=== PATIENT | female | born 1990 | race Caucasian/White ===

== ENCOUNTER 2022-08-17 19:33 | Emergency (ER) | payer OTHER, SELFPAY ==
--- OUTSIDE RECORDS SUMMARY | 2022-08-17 19:39 | XMS REPORT | Continuity of Care Document ---
:1990 Author Organization [facility] t Address [address] [place] [address] [address] [place] [address] Care Team Providers Name Role Phone Asked, No Pcp Primary Care Physician Unavailable EDGARDO MADRIGAL Attending Clinician Unavailable [email or web address] Attending Clinician Unavailable NOÉ DELGADO Attending Clinician Unavailable RYLIE NOVOA Attending Clinician Unavailable CASTRO DELONG Attending Clinician Unavailable MADHU COONEY Attending Clinician Unavailable Jesus Alberto Fajardo Attending Clinician Carlos Bolton Attending Clinician Dimitris Hurd Attending Clinician EDGARDO MADRIGAL Admitting Clinician Unavailable [facility]Charissa Admitting Clinician Unavailable Jesus Alberto Fajardo Admitting Clinician Dimitris Hurd Admitting Clinician Payers Payer Name Policy Type Policy Number Effective Date Expiration Date Art joseph [facility] [id number] 2019 00:00:00 [facility] [id number] Problems Condition Condition Condition Status Onset Resolution Last Treating Co mments Source Name Details Category Date Date Treatment Clinician Date Ectopic Ectopic Disease Active Methodi 5-[facility] without without 00:00: Hospita intrauteri intrauteri 00 l ne ne VAG PAIN VAG PAIN Diagnosis Active 2015-07-27 Memoria Active - 12:56:00 l 03/21/2015 13:30: Bright R[place] 00 [place] 574.00 / 574.00 / Diagnosis Active 2014-09-09 Memoria 574.20 574.20 08-24 09:10:00 l Active 00:00: Keenan 08/24/2014 00 [facility] ABD PAIN ABD PAIN Diagnosis Active 2014-09-07 Memoria Active 07-25 13:45:00 l 07/25/2014 00:00: Bright n [address] CHOLECYSTI CHOLECYST Diagnosis Active 2014-09-07 Memoria TIS NOS ITIS NOS 13:45:00 l Active Bright n [facility] CHOLELITH CHOLELITH Diagnosis Active 2014-09-09 Memoria W AC W AC 09:10:00 l CHOLECYST CHOLECYST Herm mary Active [facility] CHOLELITHI CHOLELITH Diagnosis Active 2014-09-09 Memoria ASIS NOS IASIS NOS 09:10:00 l Active Bright n [facility] ACUTE ACUTE Diagnosis Active 2015-07-27 Mem oria APPENDICIT APPENDICIT 12:56:00 l IS WITH IS WITH Keenan GENERALIZE GENERALIZE D LETAHA D LEATHA Active [facility] Allergies, Adverse Reactions, Alerts Allergy Allergy Status Severity Reaction(s) Onset Inactive Treating Comm ents Source Name Type Date Date Clinician NO KNOWN Drug Active Univers ALLERGIE Class ity of [facility] propofol propofol Active Luzmaria Hussein Social History Social Habit Start Date Stop Date Quantity Comments Source [facility] History of tobacco Smokes tobacco [facility] use daily Hospital History of Social [address] function 00:00:00 00:00:00 Hospital Alcohol intake 2020-12-17 2020-12-17 Current [facility] 00:00:00 00:00:00 non-drinker of Hospital alcohol (finding) Cigarettes smoked 2017-06-18 2017-06-[address] current (pack per 00:00:00 00:00:00 Hospita l day) - Reported Cigarette 2017-06-18 2017-06-18 [facility] pack-years 00:00:00 00:00:00 Hospital Tobacco use and 2017-06-18 2017-06-18 Smokeless [facility] exposure 00:00:00 00:00:00 tobacco non-user Hospital Social History 2014-07-29 2014-07-29 [facility] Adryan walton 20:11:23 20:11:23 Sex Ass[birth year] At [birth year] [facility] 00:00:00 00:00:00 Hospital Smoking Status Start Date Stop Date Source Smokes tobacco daily 2017-06-18 00:00:[address] [facility] Medications Ordered Filled Start Stop Current Ordering Indication Dosage Frequency Signature Comments Components Source Medication Medication Date Date Medication? Clinician (SIG) Name Name piero 2020-02 Yes 500mg QD Take 2 [facility] n 1-[address] (Zithromax 00:00: (500 mg [facility]) 250 00 total) by l MG tablet mouth daily. Take 2 tablets the first day, then 1 tablet daily for 4 days. Simethicone No Notes: Fidel octaviano 2-16 (Same as: l 04:20: Mylicon) [place] 00 Acetaminoph Yes 1 tab, PO, Memoria en 325 MG / 2-15 Q4H, PRN l Hydrocodone 20:38: for pain, H ermann Bitartrate 00 X 7 day, # 5 MG Oral 30 tab, 0 Tablet Refill(s) [Bethesda 5/325] Metronidazo Yes 500 mg = 1 Memoria le 500 MG 2-15 tab, PO, l Oral Tablet 20:38: Q8H, X 7 He rmann [Flagyl] 00 day, # 21 tab, 0 Refill(s) Ciprofloxac Yes 500 mg = 1 Memoria in 500 MG 2-15 tab, PO, l Oral Tablet 20:38: Q12H, X 7 H ermann [Cipro] 00 day, # 14 tab, 0 Refill(s) Ondansetron Yes 4 mg = 1 Me moria 4 MG Oral 2-15 tab, PO, l Tablet 20:38: Q6H, PRN [place] [Zofran] 00 Nausea/Vom iting, X 8 day, # 30 tab, 0 Refill(s) Metronidazo No 500 mg = 1 Memoria le 500 MG 2-15 tab, PO, l Oral Tablet 18:54: Q8H, X 7 He rmann [Flagyl] 00 day, # 21 tab, 0 Refill(s) Ciprofloxac No 500 mg = 1 Memoria in 500 MG 2-15 tab, PO, l Oral Tablet 18:54: Q12H, X 7 H ermann [Cipro] 00 day, # 14 tab, 0 Refill(s) Ondansetron No 4 mg = 1 Me moria 4 MG Oral 2-15 tab, PO, l Tablet 18:54: Q6H, PRN [place] [Zofran] 00 Nausea/Vom iting, X 8 day, # 30 tab, 0 Refill(s) Acetaminoph No 1 tab, PO, Memoria en 325 MG / 2-15 Q4H, PRN l Hydrocodone 18:54: Pain Score Keenan Bitartrate 00 4-6, 0 7.5 MG Oral Refill(s) Tablet [Bethesda 7.5/325] Docusate No Notes: Memoria Sodium 100 2-15 (Same as: l MG Oral 15:00: Colace) [place] Capsule 00 (Do Not [Colace] Crush) Zosyn No Notes: Memoria 2-15 (Same as: l 09:00: Zosyn) Keenan Dosing based on Piperacill in component MEDICATION WASTE Product Size: 3375 mg Product Wasted: ___ mg Saline No Notes: Memoria Flush 0.9% 2-15 (Same as: l 06:35: BD [place] 00 Posiflush) Sodium No 1,000 mL, Memori a Chloride 2-15 Rate: 125 l 0.154 06:35: ml/hr, [place] MEQ/ML 00 Infuse Injectable over: 8 Solution hr, Route: IV, Dosing Weight 87.784 kg, Total Volume: 1,000, Start date: 03/22/15 0:35:00, Duration: 30 day, Stop date: 04/21/15 0:34:00 Ondansetron No Notes: Fidel octaviano 2-15 (Same as: l 06:35: Zofran) [place] 00 MEDICATION WASTE Product Size: 4 mg Product Wasted: ___ mg Morphine No Notes: Memoria 2-15 (Same l 05:22: as:MORPhin Keenan 00 e Sulfate) Acetaminoph No Notes: Fidel octaviano en 325 MG / 2-15 Same as l Hydrocodone 05:22: Bethesda Chen nn Bitartrate 00 325-7.5mg 7.5 MG Oral Do not Tablet exceed [Bethesda 4gm/day of 7.5/325] acetaminop hen. Midazolam No Notes: Memori a 2-15 (Same as: l 04:48: Versed) MEDICATION WASTE Product Size: 2 mg Product Wasted: ___ mg Racepinephr No Notes: Fidel octaviano ine 2-15 (racepinep l 04:48: hrine *2.25% inh 0.5ml SOLN) (Same as:S2) Glycopyrrol No Notes: Fidel octaviano ate 2-15 (Same as: l 04:48: Robinul) Naloxone No Notes: Memoria 2-15 Same as l 04:48: Narcan Ondansetron No Notes: Fidel octaviano 2-15 (Same as: l 04:48: Zofran) MEDICATION WASTE Product Size: 4 mg Product Wasted: ___ mg Morphine No Notes: Memoria 2-15 (Same l 04:48: as:MORPhin e Sulfate) Meperidine No Notes: Memor ia 2-15 (Same as: l 04:48: Demerol) "Use Precaution in Elderly, Seizure disorders, and Renal impairment " Flumazenil No Notes: Memor ia 2-15 (Same as: l 04:48: Romazicon) Atropine No 0.2 mg, 2 Fidel octaviano 2-15 mL, Route: l 04:48: IVP, Drug form: INJ, Q5Min, Dosing Weight 87.784, kg, PRN Other -See Comment, as needed; for symptomati c pulse rate < 80% of mean 50 BPM, Start date: 03/21/15 22:48:00, Duration: 12 hr, Stop date: 03/22/15 10:47:00 Ephedrine No Notes: Memori a 2-15 (Same as: l 04:48: ePHEDrine Sulfate) Albuterol No Notes: SEE Me moria 0.83 MG/ML 2-15 RT l Inhalant 04:48: DOCUMENTAT Her lee Solution 00 ION MEDICATION WASTE Product Size: 2.5 mg Product Wasted: ___ mg Ketorolac No 4 days Memor ia 2-15 l 04:48: MEDICATION Keenan 00 WASTE Product Size: 30 mg Product Wasted: ___ mg Hydromorpho No Notes: Fidel octaviano ne 2-15 Same as: l 04:48: Dilaudid [place] 00 Oxycodone No Notes: Memori a 2-15 (Same as: l 04:48: Roxicodone [place] 00 ) Labetalol No Notes: Memori a 2-15 (Same as: l 04:48: Normodyne, [place] 00 Trandate) Push over 2 minutes Give bolus over 2-3 minutes. Hydralazine No Notes: Fidel octaviano 2-15 (Same as: l 04:48: Apresoline [place] 00 ) Push over 5 minutes Oxycodone No Notes: Memori a Hydrochlori 2-15 (Same as: l de 1 MG/ML 04:48: Roxicodone H ermann Oral 00 ) Solution Zosyn No Notes: Memoria 2-15 (Same as: l 01:12: Zosyn) Keenan 00 Dosing based on Piperacill in component MEDICATION WASTE Product Size: 3375 mg Product Wasted: 0 mg Saline No Notes: Memoria Flush 0.9% 2-14 (Same as: l 23:10: BD Keenan Posiflush) Ondansetron No Notes: Fidel octaviano 2-14 (Same as: l 23:10: Zofran) [place] 00 MEDICATION WASTE Product Size: 4 mg Product Wasted: 0 mg Morphine No Notes: Memoria 2-14 (Same l 23:10: as:MORPhin [place] 00 e Sulfate) Ketorolac No 4 days Memor ia 8-05 l 15:35: MEDICATION [place] WASTE Product Size: 30 mg Product Wasted: ___ mg Oxycodone No Notes: Memori a 8-05 (Same as: l 15:35: Roxicodone ) Hydralazine No Notes: Fidel octaviano 8-05 (Same as: l 15:35: Apresoline ) Push over 5 minutes Labetalol No Notes: Memori a 8-05 (Same as: l 15:35: Normodyne, Trandate) Push over 2 minutes Give bolus over 2-3 minutes. Ondansetron No Notes: Fidel octaviano 8-05 (Same as: l 15:35: Zofran) MEDICATION WASTE Product Size: 4 mg Product Wasted: ___ mg Promethazin No Notes: Do M emoria e 09-09 not give l 15:35: IV push. [place] 00 (Same as: Phenergan) Diphenhydra No Notes: Fidel octaviano mine 09-09 (Same as: l 15:35: Benadryl) Glycopyrrol No Notes: Fidel octaviano ate 05 (Same as: l 15:35: Robinul) Atropine No 0.2 mg, 2 Fidel octaviano 8-05 mL, Route: l 15:35: IVP, Drug form: INJ, Q5Min, Dosing Weight 59.091, kg, PRN Other -See Comment, as needed; for symptomati c pulse rate < 80% of mean 50 BPM, Start date: 09/09/14 10:35:00, Stop date: 09/09/14 20:00:00 Naloxone No Notes: Memoria 8-05 Same as l 15:35: Narcan Ephedrine No Notes: Memori a 805 (Same as: l 15:35: ePHEDrine Sulfate) Flumazenil No Notes: Memor ia 805 (Same as: l 15:35: Romazicon) Morphine No Notes: Memoria 805 (Same l 15:35: as:MORPhin e Sulfate) Meperidine No Notes: Memor ia 09-09 (Same as: l 15:35: Demerol) "Use Precaution in Elderly, Seizure disorders, and Renal impairment " Calcium No 1,000 mL, Memor ia Chloride 09-09 Rate: 125 l 0.0014 15:35: ml/hr, [place] MEQ/ML / 00 Infuse Potassium over: 8 Chloride hr, Route: 0.004 IV, Dosing MEQ/ML / Weight Sodium 59.091 kg, Chloride Total 0.103 Volume: MEQ/ML / 1,000, Sodium Start Lactate date: 0.028 09/09/14 MEQ/ML 10:35:00, Injectable Duration: Solution 30 day, Stop date: 10/09/14 10:34:00 Flumazenil No Notes: Memor ia 09-09 (Same as: l 15:13: Romazicon) Naloxone No Notes: Memoria 09-09 Same as l 15:13: Narcan LR IV 1,000 No 1,000 mL, M emoria mL 09-09 Rate: 40 l 14:35: ml/hr, [place] Infuse over: 25 hr, Route: IV, Dosing Weight 59.091 kg, Total Volume: 1,000, Start date: 09/09/14 9:35:00, Duration: 30 day, Stop date: 10/09/14 9:34:00 Simethicone Yes 125 mg = 1 Memoria 125 MG 6-27 tab, CHEW, l Chewable 21:01: QID, X 7 Chen nn Tablet day, # 28 [Gas-X tab, 0 Extra Refill(s) Strength] tramadol Yes 50 mg, PO, Mem oria hydrochlori 6-27 Q6H, PRN l de 50 MG 21:01: Pain, X 5 Herm mary Oral Tablet 00 day, # 24 tab, 0 Refill(s) Docusate Yes 100 mg = 1 Mem oria Sodium 100 6-27 cap, PO, l MG Oral 21:01: BID, PRN Bright n Capsule 00 Constipati [Colace] on, # 20 cap, 0 Refill(s) Promethazin Yes 25 mg = 1 M emoria e 6-27 tab, PO, l Hydrochlori 20:36: Q6H, PRN He rmann de 25 MG 00 Nausea, X Oral Tablet 5 day, # [Phenergan] 20 tab, 0 Refill(s) Famotidine Yes 20 mg = 1 Me moria 20 MG Oral 6-27 tab, PO, l Tablet 20:36: BID, # 14 Bright n [Pepcid] 00 tab, 0 Refill(s) Acetaminoph Yes 1 - 2 tab, Memoria en 300 MG / 6-27 PO, Q4H, l Codeine 16:56: PRN Pain, Chen nn Phosphate 00 X 4 day, # 30 MG Oral 36 tab, 0 Tablet Refill(s) [Tylenol with Codeine #3] Ciprofloxac Yes 500 mg = 1 Memoria in 500 MG 6-27 tab, PO, l Oral Tablet 16:56: Q12H, X 10 Keenan [Cipro] 00 day, # 20 tab, 0 Refill(s) Enoxaparin No Notes: Memor ia 08-01 (Same as: l 11:00: Lovenox) Ondansetron No Notes: Fidel octaviano 07-31 (Same as: l 18:35: Zofran) MEDICATION WASTE Product Size: 4 mg Product Wasted: 0 mg Acetaminoph No Notes: Do M emoria en 325 MG / 07-31 not exceed l Hydrocodone 18:35: 4gm/day of [place] Bitartrate 00 acetaminop 10 MG Oral hen. (Same Tablet as: Bethesda 325/10) Ondansetron No Notes: Fidel octaviano - (Same as: l 16:53: Zofran) MEDICATION WASTE Product Size: 4 mg Product Wasted: 0 mg Dilaudid No Notes: Memoria 6- Same as: l 16:53: Dilaudid Meperidine No Notes: Memor ia - (Same as: l 16:53: Demerol) "Use Precaution in Elderly, Seizure disorders, and Renal impairment " tramadol No Notes: Not Mem oria hydrochlori - to exceed l de 50 MG 16:53: 400mg/day. Her lee Oral Tablet 00 (Same As: Ultram) Phenergan No Notes: Do Mem oria 07-31 not give l 16:53: IV push. Keenan 00 (Same as: Phenergan) Acetaminoph No Notes: Fidel octaviano en 325 MG / 07-31 (Same as: l Hydrocodone 16:53: Bethesda Chen nn Bitartrate 00 325/5) Do 5 MG Oral not exceed Tablet 4gm/day of [Bethesda acetaminop 5/325] hen. Zofran ODT No Notes: Memor ia 07-31 (Same as: l 16:53: Zofran Keenan 00 ODT) Hydralazine No Notes: Fidel octaviano 07-31 (Same as: l 16:53: Apresoline [place] 00 ) Push over 5 minutes Labetalol No Notes: Memori a - (Same as: l 16:53: Normodyne, [place] 00 Trandate) Push over 2 minutes Give bolus over 2-3 minutes. Ketorolac No 4 days Memor ia 07-31 l 16:53: MEDICATION [place] 00 WASTE Product Size: 30 mg Product Wasted: 0 mg Flumazenil No Notes: Memor ia 07-31 (Same as: l 16:53: Romazicon) Keenan Morphine No Notes: Memoria - (Same l 16:53: as:MORPhin [place] 00 e Sulfate) Naloxone No Notes: Memoria - Same as l 16:53: Narcan Keenan 00 LR IV 1,000 No 1,000 mL, M emoria mL 07-31 Rate: 40 l 15:58: ml/hr, [place] 00 Infuse over: 25 hr, Route: IV, Dosing Weight 87.273 kg, Total Volume: 1,000, Start date: 07/31/14 10:58:00, Duration: 30 day, Stop date: 08/30/14 10:57:00 Ondansetron No Notes: Fidel octaviano 07-31 (Same as: l 13:44: Zofran) [place] 00 MEDICATION WASTE Product Size: 4 mg Product Wasted: 0 mg Morphine No Notes: Memoria 07-31 (Same l 13:44: as:MORPhin [place] 00 e Sulfate) Fentanyl No Notes: Memoria 07-31 (Same as: l 13:44: Sublimaze) [place] 00 Preservati ve free. 72 HR No Notes: Memoria Scopolamine 07-31 Change l 0.0139 13:44: patch [place] MG/HR 00 every 72 Transdermal hours Patch (Same as: Transderm- Scop) Hydrocodone No Notes: Fidel octaviano Bitartrate 07-31 (Same as: l 2.5 MG / 13:44: Vicoprofen Her lee Ibuprofen 00 ) 200 MG Oral Tablet Acetaminoph No Notes: Fidel octaviano en 325 MG / 07-31 Same as l Hydrocodone 13:44: Bethesda Chen nn Bitartrate 00 325-7.5mg 7.5 MG Oral Do not Tablet exceed [Bethesda 4gm/day of 7.5/325] acetaminop hen. Meperidine No Notes: Memor ia 07-31 (Same as: l 13:44: Demerol) "Use Precaution in Elderly, Seizure disorders, and Renal impairment " Promethazin No Notes: Do M emoria e 07-31 not give l 13:44: IV push. Keenan 00 (Same as: Phenergan) Flumazenil No Notes: Memor ia 07-31 (Same as: l 13:44: Romazicon) [place] 00 Naloxone No Notes: Memoria 07-31 Same as l 13:44: Narcan Ke[place]an 00 Flumazenil No Notes: Memor ia 07-31 (Same as: l 13:18: Romazicon) Keenan 00 Naloxone No Notes: Memoria 07-31 Same as l 13:18: Narcan LR IV 1,000 No 1,000 mL, M emoria mL 07-31 Rate: 40 l 11:33: ml/hr, [place] 00 Infuse over: 25 hr, Route: IV, Dosing Weight 87.273 kg, Total Volume: 1,000, Start date: 07/31/14 6:33:00, Duration: 30 day, Stop date: 08/30/14 6:32:00 Pepcid Yes Notes: Memoria 6-25 (Same as: l 20:48: Pepcid) Keenan 00 Can be dilute in 5-10cc NS IVP: Slow IV push over at least 2 minutes. Citric Acid Yes Notes: Fidel octaviano 66.8 MG/ML 07-30 (Same As: l / sodium 20:48: Bicitra) Chen nn citrate 100 00 MG/ML Oral Solution Reglan Yes Notes: Memoria 6-25 (Same as: l 20:48: Reglan) Keenan 00 Midazolam No 1 mg, Memoria 07-30 Route: l 20:45: IVP, Keenan 00 Q5Min, Dosing Weight 87.273, kg, PRN Anxiety, Start date: 07/30/14 15:45:00, Duration: 2 doses or times, Stop date: Limited # of times Ondansetron No 4 mg, Memor ia 07-30 Route: l 20:45: IVP, ONCE, Dosing Weight 87.273, kg, PRN Nausea & Vomiting, Start date: 07/30/14 15:45:00 72 HR No 1 patch, Memoria Scopolamine 07-30 Route: l 0.0139 20:45: TOP, Drug Bright n MG/HR 00 Form: Transdermal ERFILM, Patch Dosing Weight 87.273, kg, ONCE, Apply behind ear. Avoid use in elderly., Start date: 07/30/14 15:45:00, Stop date: 07/30/14 15:45:00 Dexamethaso No 4 mg, Memor ia ne 07-30 Route: l 20:45: IVP, ONCE, Dosing Weight 87.273, kg, PRN Nausea & Vomiting, Start date: 07/30/14 15:45:00 Phenergan No 25 mg, Memori a 07-30 Route: IM, l 20:45: ONCE, Dosing Weight 87.273, kg, PRN Allergic reaction, Start date: 07/30/14 15:45:00 Meperidine 2014-0 No 50 mg, Memor ia 07-30 Route: IM, l 20:45: ONCE, [place] Dosing Weight 87.273, kg, PRN Pain Score 7-10, Start date: 07/30/14 15:45:00 Reglan 2015-0 No 10 mg, Memoria 07-30 Route: l 20:45: IVP, ONCE, Keenan Dosing Weight 87.273, kg, PRN Nausea & Vomiting, Start date: 07/30/14 15:45:00 Glycopyrrol 2014-0 No 0.2 mg, Mem oria ate 07-30 Route: l 20:45: IVP, Keenan 00 Q5Min, Dosing Weight 87.273, kg, PRN Bradycardi a, Start date: 07/30/14 15:45:00, Duration: 3 doses or times, Stop date: Limited # of times Diphenhydra 2014-0 No 12.5 mg, Me moria mine 07-30 Route: l 20:45: IVP, Drug Keenan 00 form: INJ, Q6H, Dosing Weight 87.273, kg, PRN Itching, Start date: 07/30/14 15:45:00, Duration: 30 day, Stop date: 08/29/14 15:44:00 Albuterol 2014-0 No 2.49 mg, Fidel octaviano 0.83 MG/ML 07-30 Route: l Inhalant 20:45: NEB, Keenan Solution 00 Q20Min, Dosing Weight 87.273, kg, PRN Wheezing, Priority: STAT, Start date: 07/30/14 15:45:00, Duration: 30 day, Stop date: 08/29/14 15:44:00 Naloxone 2014-0 No 0.04 mg, Memor ia 07-30 Route: l 20:45: IVP, [place] 00 Q2MIN, Dosing Weight 87.273, kg, PRN Narcotic Reversal, Start date: 07/30/14 15:45:00, Duration: 8 doses or times, Stop date: Limited # of times Ephedrine 2014-0 No 5 mg, Memoria 07-30 Route: l 20:45: IVP, [place] 00 Q5Min, Dosing Weight 87.273, kg, PRN Low Blood Pressure, Start date: 07/30/14 15:45:00, Duration: 30 day, Stop date: 08/29/14 15:44:00 Labetalol 2014-0 No 10 mg, Memori a 07-30 Route: l 20:45: IVP, Keenan 00 Q5Min, Dosing Weight 87.273, kg, PRN Elevated BP, Start date: 07/30/14 15:45:00, Duration: 5 doses or times, Stop date: Limited # of times Hydralazine 2014-0 No 10 mg, Fidel octaviano 07-30 Route: l 20:45: IVP, [place] 00 Q20Min, Dosing Weight 87.273, kg, PRN Elevated BP, Start date: 07/30/14 15:45:00, Duration: 2 doses or times, Stop date: Limited # of times Acetaminoph 2014-0 No 1,000 mg, M emoria en 07-30 Route: l 20:45: IVPB, Drug [place] 00 form: INJ, ONCE, Dosing Weight 87.273, kg, PRN Pain Score 1-3, Start date: 07/30/14 15:45:00, Duration: 1 doses or times, Stop date: Limited # of times Oxycodone 2014-0 No 5 mg, Memoria 07-30 Route: PO, l 20:45: Drug form: [place] 00 TAB, Q4H, Dosing Weight 87.273, kg, PRN Pain Score 4-6, Start date: 07/30/14 15:45:00, Duration: 30 day, Stop date: 08/29/14 15:44:00 Ketorolac 2015-0 No 30 mg, Memori a 07-30 Route: l 20:45: IVP, ONCE, [place] 00 Dosing Weight 87.273, kg, Start date: 07/30/14 15:45:00, Duration: 1 doses or times, Stop date: 07/30/14 15:45:00 Ibuprofen 2014-0 No 600 mg, Memor ia 07-30 Route: PO, l 20:45: Drug form: Ke[place]an 00 TAB, Q6H, Dosing Weight 87.273, kg, PRN Pain Score 1-3, Start date: 07/30/14 15:45:00, Duration: 30 day, Stop date: 08/29/14 15:44:00 Morphine No 4 mg, Memoria 6-25 Route: l 20:45: IVP, [place] 00 Q5Min, Dosing Weight 87.273, kg, PRN Pain Score 7-10, Start date: 07/30/14 15:45:00, Duration: 3 doses or times, Stop date: Limited # of times Flumazenil No 0.2 mg, Fidel octaviano 6-25 Route: l 20:45: IVP, PRN, Dosing Weight 87.273, kg, PRN Benzodiaze pine Reversal, Initial dose, Start date: 07/30/14 15:45:00, Duration: 30 day, Stop date: 08/29/14 15:44:00 Normodyne No Notes: Memori a 6-25 (Same as: l 20:39: Normodyne, [place] 00 Trandate) Push over 2 minutes Give bolus over 2-3 minutes. Meperidine No Notes: Memor ia -25 (Same as: l 20:24: Demerol) "Use Precaution in Elderly, Seizure disorders, and Renal impairment " Reglan No Notes: Memoria 6-25 (Same as: l 20:24: Reglan) Phenergan No Notes: Do Mem oria 6-25 not give l 20:24: IV push. (Same as: Phenergan) Albuterol No Notes: SEE Me moria 0.83 MG/ML 25 RT l Inhalant 20:24: DOCUMENTAT Her lee Solution 00 ION MEDICATION WASTE Product Size: 2.5 mg Product Wasted: ___ mg Naloxone No Notes: Memoria 6-25 Same as l 20:24: Narcan Ephedrine No 5 mg, 1 Memor ia 6-25 mL, Route: l 20:24: IVP, Drug form: INJ, Q5Min, Dosing Weight 87.273, kg, PRN Low Blood Pressure, Start date: 07/30/14 15:24:00, Duration: 8 hr, Stop date: 07/30/14 23:23:00 Ibuprofen No Notes: Memori a 6-25 (Same as: l 20:24: Motrin) "Do Not Crush" Take with food. Hydralazine No Notes: Fidel octaviano 6-25 (Same as: l 20:24: Apresoline ) Push over 5 minutes Labetalol No Notes: Memori a 6-25 (Same as: l 20:24: Normodyne, Trandate) Push over 2 minutes Give bolus over 2-3 minutes. Oxycodone No Notes: Memori a 6-25 (Same as: l 20:24: Roxicodone ) Acetaminoph No Notes: Fidel octaviano en 6-25 Infuse l 20:24: over 15 minutes Do not exceed 4gm/day of acetaminop hen MEDICATION WASTE Product Size: 1000 mg Product Wasted: ___ mg Flumazenil No Notes: Memor ia 6-25 (Same as: l 20:24: Romazicon) Morphine No Notes: Memoria 6-25 (Same l 20:24: as:MORPhin e Sulfate) Ketorolac No 4 days Memor ia 6-25 l 20:24: MEDICATION WASTE Product Size: 30 mg Product Wasted: ___ mg Ondansetron No Notes: Fidel octaviano 6-25 (Same as: l 20:24: Zofran) MEDICATION WASTE Product Size: 4 mg Product Wasted: ___ mg Dexamethaso No Notes: Fidel octaviano ne 6-25 Concentrat l 20:24: ion: [place] 00 4mg/ml Diphenhydra No Notes: Fidel octaviano mine 6-25 (Same as: l 20:24: Benadryl) Glycopyrrol No Notes: Fidel octaviano ate 6-25 (Same as: l 20:24: Robinul) 72 HR No Notes: Memoria Scopolamine 6-25 Change l 0.0139 20:24: patch [place] MG/HR 00 every 72 Transdermal hours Patch (Same as: Transderm- Scop) Midazolam No Notes: Memori a 07-30 (Same as: l 20:24: Versed) [place] MEDICATION WASTE Product Size: 2 mg Product Wasted: ___ mg LR IV 1,000 No 1,000 mL, M emoria mL 07-30 Rate: 40 l 20:23: ml/hr, [place]an 00 Infuse over: 25 hr, Route: IV, Dosing Weight 87.273 kg, Total Volume: 1,000, Start date: 07/30/14 15:23:00, Duration: 6 hr, Stop date: 07/30/14 21:22:00 remove No Notes: Memoria patch 07-30 Remove old l 20:00: patch [place] 00 before applicatio n of new patch. Nicotine No Notes: Memoria - (Same as: l 20:01: Habitrol) Keenan 00 "Remove old patch before applicatio n of new patch" Flagyl No Notes: Memoria 6-24 (Same as: l 18:00: Flagyl) [place] 00 Avoid alcohol. Levaquin No Notes: Memoria 6-24 (Same l 18:00: as:Levaqui [place] 00 n) Clonazepam Yes Notes: Memor ia 07-29 (Same As: l 17:20: KlonoPIN) [place] 00 Saline No Notes: Memoria Flush 0.9% 07-29 (Same as: l 17:02: BD [place] 00 Posiflush) Sodium No 1,000 mL, Memori a Chloride 07-29 Rate: 125 l 0.154 17:02: ml/hr, [place] MEQ/ML 00 Infuse Injectable over: 8 Solution hr, Route: IV, Dosing Weight 87.273 kg, Total Volume: 1,000, Start date: 07/29/14 12:02:00, Duration: 30 day, Stop date: 08/28/14 12:01:00 Ondansetron No Notes: Fidel octaviano 07-29 (Same as: l 17:02: Zofran) [place] 00 MEDICATION WASTE Product Size: 4 mg Product Wasted: ___ mg Morphine No Notes: Memoria 24 (Same l 17:02: as:MORPhin [place] 00 e Sulfate) Acetaminoph No Notes: Max Memoria en 24 acetaminop l 17:02: hen = [place] 00 4000mg/day (4 gm/day). (Same as: Tylenol) Acetaminoph No Notes: Fidel octaviano en 325 MG / 24 (Same as: l Hydrocodone 15:12: Bethesda Chen nn Bitartrate 00 325/5) Do 5 MG Oral not exceed Tablet 4gm/day of acetaminop hen. Ondansetron No Notes: Fidel octaviano 07-29 (Same as: l 15:12: Zofran) [place] 00 MEDICATION WASTE Product Size: 4 mg Product Wasted: ___ mg Ketorolac No 4 days Memor ia 07-29 l 15:12: MEDICATION [place] 00 WASTE Product Size: 30 mg Product Wasted: ___ mg Saline No Notes: Memoria Flush 0.9% 07-29 (Same as: l 15:12: BD [place] 00 Posiflush) Sodium No 1,000 mL, Memori a Chloride 07-29 1000 l 0.154 15:12: ml/hr, [place] MEQ/ML 00 Infuse Injectable Over: 1 Solution hr, Route: IV, 1,000, Drug form: INJ, ONCE, Priority: STAT, kg, Start date: 07/29/14 10:12:00, Duration: 1 doses or times, Stop date: 07/29/14 10:12:00 Balziva Yes 1 tab, PO, Fidel octaviano 07-29 Bedtime, 0 l 02:00: Refill(s) [place] 00 Immunizations Ordered Immunization Filled Immunization Date Status Commen ts Source Name Name PFIZER COVID-19 MRNA 2020-09-30 Completed Meth odist VACCINATION 00:00:00 Hospital Vital Signs Vital Name Observation Time Observation Value Comments Source Heart Rate 2015-03-23 16:04:00 [place] [facility] Systolic (mm Hg) 2015-03-23 16:04:00 Fidel rial [place] Diastolic (mm Hg) 2015-03-23 16:04:00 [facility] [place] Respitory Rate 2015-03-23 12:18:00 [facility] [place] Heart Rate 2015-03-23 12:18:00 [facility] [place] Systolic (mm Hg) 2015-03-23 12:18:00 Fidel [facility] [place] Diastolic (mm Hg) 2015-03-23 12:18:00 [facility] [place] Temperature Oral (F) 2015-03-23 12:18:00 97.8 F [facility] [place] Respitory Rate 2015-03-23 11:12:00 [facility] [place] Heart Rate 2015-03-23 11:12:00 [facility] [place] Systolic (mm Hg) 2015-03-23 11:12:00 Fidel rial [place] Diastolic (mm Hg) 2015-03-23 11:12:00 [facility] [place] Respitory Rate 2015-03-23 06:00:00 [facility] [place] Temperature Oral (F) 2015-03-23 06:00:00 98.3 F [facility] [place] Temperature Oral (F) 2015-03-23 01:30:00 97.6 F [facility] Height 2015-03-22 06:34:00 167.64 cm [facility] BMI Calculated 2015-03-22 06:34:00 [facility] [place] Weight 2015-03-22 06:34:00 [facility] [place] Weight 2015-03-21 22:56:00 [facility] [place] BMI Calculated 2015-03-21 22:56:00 [facility] [place] Height 2015-03-21 22:56:00 167.64 cm [facility] [place] Respitory Rate 2014-09-09 15:59:00 [facility] [place] Systolic (mm Hg) 2014-09-09 15:59:00 Fidel rial [place] Diastolic (mm Hg) 2014-09-09 15:59:00 [facility] [place] Heart Rate 2014-09-09 15:59:00 [facility] [place] Heart Rate 2014-09-09 15:50:00 [facility] [place] Systolic (mm Hg) 2014-09-09 15:50:00 Fidel [facility] [place] Diastolic (mm Hg) 2014-09-09 15:50:00 [facility] [place] Respitory Rate 2014-09-09 15:50:00 [facility] [place] Respitory Rate 2014-09-09 15:46:00 [facility] [place] Heart Rate 2014-09-09 15:46:00 [facility] [place] Systolic (mm Hg) 2014-09-09 15:46:00 Fidel [facility] [place] Diastolic (mm Hg) 2014-09-09 15:46:00 [facility] [place] Height 2014-09-09 14:20:00 167.64 cm [facility] Weight 2014-09-09 14:20:00 [facility] [place] BMI Calculated 2014-09-09 14:20:00 [facility] [place] Systolic (mm Hg) 2014-08-01 16:30:00 Fidel rial [place] Diastolic (mm Hg) 2014-08-01 16:30:00 [facility] [place] Respitory Rate 2014-08-01 16:30:00 [facility] [place] Heart Rate 2014-08-01 16:30:00 [facility] Temperature Oral (F) 2014-08-01 16:30:00 98.4 F [facility] [place] Respitory Rate 2014-08-01 13:20:00 [facility] [place] Systolic (mm Hg) 2014-08-01 11:00:00 Fidel rial [place] Diastolic (mm Hg) 2014-08-01 11:00:00 [facility] [place] Temperature Oral (F) 2014-08-01 11:00:00 98.1 F [facility] [place] Heart Rate 2014-08-01 11:00:00 [facility] [place] Respitory Rate 2014-08-01 11:00:00 [facility] [place] Temperature Oral (F) 2014-08-01 10:08:00 98.2 F [facility] [place] Heart Rate 2014-08-01 10:08:00 [facility] Systolic (mm Hg) 2014-08-01 10:08:00 Fidel rial [place] Diastolic (mm Hg) 2014-08-01 10:08:00 [facility] [place] Height 2014-07-29 15:12:00 167.64 cm [facility] Weight 2014-07-29 15:12:00 [facility] [place] BMI Calculated 2014-07-29 15:12:00 [facility] Procedures Procedure Date / Time Performed Performing Clinician Sourc e ERCP [facility] [place] Cholecystectomy [facility] [place] Plan of Care Planned Activity Planned Date Details Comments Source Future Scheduled 2022-07-27 Pneumococcal Vaccine: [facility] Test 01:41:35 Pediatrics (0 to 5 Years) and At-Risk Patients (6 to 64 Years) (1 - PCV) [code = Pneumococcal Vaccine: Pediatrics (0 to 5 Years) and At-Risk Patients (6 to 64 Years) (1 - PCV)] Future Scheduled 2022-07-27 Hepatitis C screening [facility] Test 01:41:35 (procedure) [code = 808999175] Future Scheduled 2022-07-27 Scre[facility] Test 01:41:35 malignant neoplasm of cervix (procedure) [code = 398138811] Future Scheduled 2022-07-27 COVID-19 VACCINE (2 - [facility] Test 01:41:35 Pfizer series) [code = COVID-19 VACCINE (2 - Pfizer series)] Future Scheduled 2022-07-27 INFLUENZA VACCINE [facility] Test 01:41:35 [code = INFLUENZA VACCINE] Encounters Start End Encounter Admission Attending Care Care Encounter Source Date/Time Date/Time Type Type Clinicians Facility Department ID 2019-04-12 Inpatient KAITLIN [facility] [id number] [facility] 22:08:00 [facility] 2021-01-20 2021-01-20 Outpatient GC_COHEN_Co PRIV PRIV [id number] [facility] 02:00:00 02:00:00 hen_D [id number] Medica l 2020-12-17 2020-12-17 Emergency DELGADONOÉ [facility] [id number] [place] 00:00:00 00:00:00 028 Method i 2020-08-16 2020-08-16 Emergency BRIGHT, [place] [id number] [place] 00:00:00 00:00:00 KALIF 447 Method i 2020-01-17 2020-01-18 Emergency SINDI, [facility] 064 [id number] [place] 00:00:00 00:00:00 CASTRO 028 Method i 2019-04-12 2019-04-12 Emergency IVET, [facility] [id number] [place] 00:00:00 00:00:00 MADHU 864 Method i 2015-03-21 2015-03-23 Inpatient [facility] [id number] [facility] 22:46:00 16:58:00 sonia Hussein 03 l [facility] 2015-03-21 2015-03-23 Outpatient Fajardo, [facility] [id number] 16:46:00 10:58:00 Jesus Alberto 03 [place] 2014-09-09 2014-09-09 Bedded nullFlavo [facility] [id number] Memoria 14:00:00 16:15:00 Outpatient r Keenan 02 l [facility] 2014-09-09 2014-09-09 Outpatient Iduru, [facility] [id number] 09:00:00 11:15:00 Carlos 02 Rodney 2014-07-29 2014[facility] [facility] [id number] Mem[facility] 14:55:00 23:07:00 r Keenan 01 [facility] 2014-07-29 2014-08-01 Outpatient Vannessa, [id number] 09:55:00 18:07:00 Dimitris [id number] 01 Results Test Description Test Time Test Comments Results Result Comments Source HEMATOLOGY 2015-03-23 10:10:00 Test Item Value Reference Range Interpretation Comme nts MCHC (test code = MCHC) 33.7 32.0-36.0 [facility]mqruotULXONTSJTE6892-76-88 10:10:00 Test Item Value Reference Range Interpretation Comments Hgb (test code = Hgb) 11.4 12.0-16.0 [facility] HeightsAfipwdvQYVVMLLVPF2110-35-05 10:10:00 Test Item Value Reference Range Interpretation Comments Hct (test code = Hct) 33.8 36.0-48.0 [facility] HeightsSzxvehpMESVTVHQVT5624-32-37 10:10:00 Test Item Value Reference Range Interpretation Comments RBC (test code = RBC) 4.02 4.20-5.40 [facility] HeightsFarzdxiZBVMWYTLSX3985-42-19 10:10:00 Test Item Value Reference Range Interpretation Comments WBC (test code = WBC) 14.5 3.7-10.4 [facility] HeightsEhmdocuTVZDVKCRGQ3544-41-42 10:10:00 Test Item Value Reference Range Interpretation Comments MCV (test code = MCV) 84.1 80.0-98.0 [facility]JFNZU8122[facility]25-27 10:10:00 Test Item Value Reference Range Interpretation Comments LDL (Calculated) (test code = LDL 77 (Calculated)) [facility]VrzdvhvQWBXXV5496-36-79 10:10:00 Test Item Value Reference Range Interpretation Comments VLDL (test code = VLDL) 12 [facility] CenterAmqsunbBHEVXD0117-51-77 10:10:00 Test Item Value Reference Range Interpretation Comments Trig (test code = Trig) 62 [facility] CenterAsduttfTXVAWN1011-68-55 10:10:00 Test Item Value Reference Range Interpretation Comments Chol (test code = Chol) 124 [facility] CenterXpgciskUCFQAL7340-05-01 10:10:00 Test Item Value Reference Range Interpretation Comments HDL (test code = HDL) 35 [facility] CenterOzoxcsrPVZFFB1050-08-40 10:10:00 Test Item Value Reference Range Interpretation Comments CHD Risk (test code = CHD Risk) 3.54 3.90-5.80 [facility] FVDRRDYXH7622-96-63 10:10:00 Test Item Value Reference Range Interpretation Comments Hgb A1C (test code = Hgb A1C) 5.1 [facility]CHE[facility] ORCYH5378-16-89 10:10:00 Test Item Value Reference Range Interpretation Comments Phosphorus (test code = Phosphorus) 2.9 2.5-4.5 [facility]CHE[facility] HHDEI2702-22-26 10:10:00 Test Item Value Reference Range Interpretation Comments Magnesium Lvl (test code = Magnesium 1.8 1.8-2.4 Lvl) [facility]EnesjrzAOYOYVEQRUGY7129-25-47 10:10:00 Test Item Value Reference Range Interpretation Comments AGAP (test code = AGAP) 10.5 10.0-20.0 [facility]IutwiehYJPFHBCTGPKR0454-71-82 10:10:00 Test Item Value Reference Range Interpretation Comments Chloride Lvl (test code = Chloride Lvl) 107 95-109 [facility]MleilopVDFFFADQHIYP1428-36-22 10:10:00 Test Item Value Reference Range Interpretation Comments Potassium Lvl (test code = Potassium 3.5 3.5-5.1 Lvl) [facility] HospitalFenubzzFFUNCBHPCOYF4130-64-04 10:10:00 Test Item Value Reference Range Interpretation Comments Sodium Lvl (test code = Sodium Lvl) 141 135-145 [facility] HospitalLcklnddCDETIQUZOZJD5875-21-53 10:10:00 Test Item Value Reference Range Interpretation Comments BUN (test code = BUN) 11 7-22 [facility]RvzogfyZLXWBXBFRARI4329-01-65 10:10:00 Test Item Value Reference Range Interpretation Comments Creatinine Lvl (test code = Creatinine 0.78 0.50-1.40 Lvl) [facility] HospitalYmywgfiXKYDEBTLPNQC0660-37-87 10:10:00 Test Item Value Reference Range Interpretation Comments Calcium Lvl (test code = Calcium Lvl) 8.1 8.5-10.5 [facility] HospitalSfvbbpjJIFSRHWYEEVA1155-18-09 10:10:00 Test Item Value Reference Range Interpretation Comments CO2 (test code = CO2) 27 24-32 [facility] HospitalIkbzjmeRYQLPRTIHBCU5763-39-29 10:10:00 Test Item Value Reference Range Interpretation Comments eGFR (test code = eGFR) 107 [facility] HospitalBjetqeiZKVCVQXBMVZL7395-35-20 10:10:00 Test Item Value Reference Range Interpretation Comments Glucose Lvl (test code = Glucose Lvl) 111 70-99 [facility] HeightsVnpxsumDRVKOOBEGR0711-96-85 10:10:00 Test Item Value Reference Range Interpretation Comments Eosinophils (test code = 0.6 See_Comment [A utomated message] The Eosinophils) system which ge nerated this result tra nsmitted reference range : <=4.0. The reference r angel was not used to int erpret this result as normal/abnormal . [facility] HeightsJajiftwSTHHLFTKXK6692-63-89 10:10:00 Test Item Value Reference Range Interpretation Comments Segs-Bands # (test code = Segs-Bands #) 10.2 1.5-8.1 [facility] HeightsLcfjnjzETPZSIUTKD8163-54-15 10:10:00 Test Item Value Reference Range Interpretation Comments Lymphocytes # (test code = Lymphocytes 3.3 1.0-5.5 #) [facility] HeightsHfzrdeeWSMWXJUWWY6165-23-14 10:10:00 Test Item Value Reference Range Interpretation Comments Monocytes # (test code 0.8 See_Comment [Aut omated message] The = Monocytes #) system which generated this result tra nsmitted reference range : <=0.8. The reference r angel was not used to int erpret this result as normal/abnormal . [facility] HeightsJtmgrjgLMTBZVHBEF2692-70-88 10:10:00 Test Item Value Reference Range Interpretation Comments Basophils (test code = 0.2 See_Comment [Aut omated message] The Basophils) system which ge nerated this result tra nsmitted reference range : <=1.0. The reference r angel was not used to int erpret this result as normal/abnormal . [facility] HeightsQxjinsaBCYYOUZUGZ4111-03-03 10:10:00 Test Item Value Reference Range Interpretation Comments Segs (test code = Segs) 70.8 45.0-75.0 [facility] HeightsCdnrmbrTIGTYPAXLY4311-35-97 10:10:00 Test Item Value Reference Range Interpretation Comments Lymphocytes (test code = Lymphocytes) 23.1 20.0-40.0 [facility] HeightsEocktbgHMQNPCHJAL4357-29-26 10:10:00 Test Item Value Reference Range Interpretation Comments Monocytes (test code = Monocytes) 5.3 2.0-12.0 [facility] HeightsLihdenuLDXJDIOUXQ4013-91-81 10:10:00 Test Item Value Reference Range Interpretation Comments Eosinophils # (test code 0.1 See_Comment [A utomated message] The = Eosinophils #) system whic h generated this result tra nsmitted reference range : <=0.5. The reference r angel was not used to int erpret this result as normal/abnormal . [facility] HeightsQobwuyjTXSSHMUESR2098-49-53 10:10:00 Test Item Value Reference Range Interpretation Comments RDW (test code = RDW) 14.0 11.5-14.5 [facility] HeightsUgwosrdTMAPALQMVX5161-38-44 10:10:00 Test Item Value Reference Range Interpretation Comments Platelet (test code = Platelet) 372 133-450 [facility] HeightsCbqontxVFCBQIJDRC5880-66-21 10:10:00 Test Item Value Reference Range Interpretation Comments MPV (test code = MPV) 7.8 7.4-10.4 [facility] HeightsFlznrwdJRCYGQAGCR6582-03-71 10:10:00 Test Item Value Reference Range Interpretation Comments MCH (test code = MCH) 28.4 pg 27.0-31.0 [facility]2016-02-15 20:04:00 Test Item Value Reference Range Interpretation Comments Phosphorus (test code = Phosphorus) 3.1 2.5-4.5 [facility]2016-02-15 20:04:00 Test Item Value Reference Range Interpretation Comments eGFR (test code = eGFR) 92 [facility]2016-02-15 20:04:00 Test Item Value Reference Range Interpretation Comments Calcium Lvl (test code = Calcium Lvl) 8.6 8.5-10.5 [facility]2016-02-15 20:04:00 Test Item Value Reference Range Interpretation Comments CO2 (test code = CO2) 26 24-32 [facility]2016-02-15 20:04:00 Test Item Value Reference Range Interpretation Comments Chloride Lvl (test code = Chloride Lvl) 107 95-109 [facility]2016-02-15 20:04:00 Test Item Value Reference Range Interpretation Comments Potassium Lvl (test code = Potassium 3.8 3.5-5.1 Lvl) [facility]2016-02-15 20:04:00 Test Item Value Reference Range Interpretation Comments Sodium Lvl (test code = Sodium Lvl) 141 135-145 [facility]2016-02-15 20:04:00 Test Item Value Reference Range Interpretation Comments Creatinine Lvl (test code = Creatinine 0.87 0.50-1.40 Lvl) [facility]2016-02-15 20:04:00 Test Item Value Reference Range Interpretation Comments Glucose Lvl (test code = Glucose Lvl) 135 70-99 [facility]2016-02-15 20:04:00 Test Item Value Reference Range Interpretation Comments BUN (test code = BUN) 11 7-22 [facility]2016-02-15 20:04:00 Test Item Value Reference Range Interpretation Comments AGAP (test code = AGAP) 11.8 10.0-20.0 [facility]2016-02-15 20:04:00 Test Item Value Reference Range Interpretation Comments Magnesium Lvl (test code = Magnesium 2.0 1.8-2.4 Lvl) [facility] HeightsQmfzcquJFELRNRLLB3190-68-76 20:04:00 Test Item Value Reference Range Interpretation Comments MPV (test code = MPV) 7.9 7.4-10.4 [facility] HeightsIciblrfCKLZYJPJPS0117-11-38 20:04:00 Test Item Value Reference Range Interpretation Comments RDW (test code = RDW) 14.0 11.5-14.5 [facility] HeightsOcxjxgbUXTHQUJBZA2369-89-27 20:04:00 Test Item Value Reference Range Interpretation Comments MCH (test code = MCH) 28.2 pg 27.0-31.0 [facility]ggsmpoXQJHJKXXEI9550-98-09 20:04:00 Test Item Value Reference Range Interpretation Comments MCHC (test code = MCHC) 33.3 32.0-36.0 [facility]JhtlireTLNJAEPHEO9263-82-96 20:04:00 Test Item Value Reference Range Interpretation Comments Hct (test code = Hct) 36.5 36.0-48.0 [facility]VmxbwudATKVJAARZO9129-71-37 20:04:00 Test Item Value Reference Range Interpretation Comments Hgb (test code = Hgb) 12.1 12.0-16.0 [facility] MichiganGwpavqwASQCERAKYB4207-08-77 20:04:00 Test Item Value Reference Range Interpretation Comments RBC (test code = RBC) 4.31 4.20-5.40 [facility] MichiganLtpzldpCPQRBINWVR3426-46-15 20:04:00 Test Item Value Reference Range Interpretation Comments Platelet (test code = Platelet) 422 045-935 [facility] HeightsZhkgvokUGHHIBSDIB1264-15-55 20:04:00 Test Item Value Reference Range Interpretation Comments MCV (test code = MCV) 84.7 80.0-98.0 [facility] MichiganKealdogAEGUPCJAMG8888-21-22 20:04:00 Test Item Value Reference Range Interpretation Comments WBC (test code = WBC) 17.4 3.7-10.4 [facility] [id number] 10:42:00 Test Item Value Reference Range Interpretation Comments eGFR (test code = eGFR) 114 [facility] LTWCH7710-14-56 10:42:00 Test Item Value Reference Range Interpretation Comments Creatinine Lvl (test code = Creatinine 0.73 0.50-1.40 Lvl) [facility] MichiganTvfexawYORGXBQYWS9836-97-40 10:42:00 Test Item Value Reference Range Interpretation Comments PTT (test code = PTT) 34.3 s 22.9-35.8 [facility] MichiganWzxvvahQHWVVRZSWD9110-73-63 10:42:00 Test Item Value Reference Range Interpretation Comments Platelet (test code = Platelet) 429 133-450 [facility] AND [id number] 23:53:00 Test Item Value Reference Range Interpretation Comments UA Protein (test code Negative (03/21/15 5:53 = UA Protein) PM) [facility] [id number] 23:53:00 Test Item Value Reference Range Interpretation Comments UA Ketones (test code Negative *NA*(03/21/15 = UA Ketones) 5:53 PM) [facility] [id number] 23:53:00 Test Item Value Reference Range Interpretation Comments UA Glucose (test code Negative (03/21/15 5:53 = UA Glucose) PM) [facility] [id number] 23:53:00 Test Item Value Reference Range Interpretation Comments UA Spec Grav (test >=1.030 *ABN*(03/21/15 code = UA Spec Grav) 5:53 PM) [facility] [id number] 23:53:00 Test Item Value Reference Range Interpretation Comments UA Turbidity (test code = Clear (03/21/15 5:53 UA Turbidity) PM) [facility] [id number] 23:53:00 Test Item Value Reference Range Interpretation Comments UA pH (test code = UA pH) 5.5 1 5.0-8.0 [facility] [id number] 23:53:00 Test Item Value Reference Range Interpretation Comments UA Color (test code = Yellow *NA*(03/21/15 UA Color) 5:53 PM) [facility] [id number] 23:53:00 Test Item Value Reference Range Interpretation Comments UA Blood (test code = Trace *ABN*(03/21/15 UA Blood) 5:53 PM) [facility] [id number] 23:53:00 Test Item Value Reference Range Interpretation Comments UA Bili (test code = Negative *NA*(03/21/15 UA Bili) 5:53 PM) [facility] [id number] 23:53:00 Test Item Value Reference Range Interpretation Comments UA Mucus (test code = UA Mucus) Few /LPF [facility] [id number] 23:53:00 Test Item Value Reference Range Interpretation Comments UA WBC (test code = UA WBC) 0-2 /HPF [facility] [id number] 23:53:00 Test Item Value Reference Range Interpretation Comments UA Bacteria (test code = UA Few /HPF Bacteria) [facility] [id number] 23:53:00 Test Item Value Reference Range Interpretation Comments UA RBC (test code = 0-2 /HPF See_Comment [Automa joanna message] The UA RBC) system which ge nerated this result tra nsmitted reference range : <=2. The reference range was not used to interpr et this result as shirley l/abnormal. [facility] [id number] 23:53:00 Test Item Value Reference Range Interpretation Comments UA Nitrite (test code Negative (03/21/15 5:53 = UA Nitrite) PM) [facility] [id number] 23:53:00 Test Item Value Reference Range Interpretation Comments UA Sq Epi (test code = UA Sq Epi) Few /LPF [facility] [id number] 23:53:00 Test Item Value Reference Range Interpretation Comments UA Leuk Est (test Negative (03/21/15 5:53 code = UA Leuk Est) PM) [facility] [id number] 23:53:00 Test Item Value Reference Range Interpretation Comments UA Urobilinogen (test code = UA 0.2 0.1-1.0 Urobilinogen) [facility] [id number] 23:53:00 Test Item Value Reference Range Interpretation Comments U Preg (test code = U Negative (03/21/15 5:53 Preg) PM) [facility] [id number] 23:23:00 Test Item Value Reference Range Interpretation Comments A/G Ratio (test code = A/G Ratio) 1.1 0.7-1.6 [facility]CHE[facility] [id number] 23:23:00 Test Item Value Reference Range Interpretation Comments Globulin (test code = Globulin) 3.8 2.0-4.0 [facility] [id number] 23:23:00 Test Item Value Reference Range Interpretation Comments AGAP (test code = AGAP) 10.8 10.0-20.0 [facility] [id number] 23:23:00 Test Item Value Reference Range Interpretation Comments B/C Ratio (test code = B/C Ratio) 19 6-25 [facility] [id number] 23:23:00 Test Item Value Reference Range Interpretation Comments ALT (test code = ALT) 36 See_Comment [Auto mated message] The system which ge nerated this result transmit joanna reference range : <=65. The reference range was not used to interpr et this result as shirley l/abnormal. [facility]2016-02-14 23:23:00 Test Item Value Reference Range Interpretation Comments Albumin Lvl (test code = Albumin Lvl) 4.0 3.5-5.0 [facility]2016-02-14 23:23:00 Test Item Value Reference Range Interpretation Comments Calcium Lvl (test code = Calcium Lvl) 9.2 8.5-10.5 [facility]2016-02-14 23:23:00 Test Item Value Reference Range Interpretation Comments Total Protein (test code = Total 7.8 6.4-8.4 Protein) [facility]2016-02-14 23:23:00 Test Item Value Reference Range Interpretation Comments AST (test code = AST) 19 See_Comment [Auto mated message] The system which ge nerated this result transmit joanna reference range : <=37. The reference range was not used to interpr et this result as shirley l/abnormal. [facility]2016-02-14 23:23:00 Test Item Value Reference Range Interpretation Comments Bili Total (test code = Bili Total) 0.3 0.2-1.3 [facility]2016-02-14 23:23:00 Test Item Value Reference Range Interpretation Comments Sodium Lvl (test code = Sodium Lvl) 138 135-145 [facility]2016-02-14 23:23:00 Test Item Value Reference Range Interpretation Comments Chloride Lvl (test code = Chloride Lvl) 106 95-109 [facility]2016-02-14 23:23:00 Test Item Value Reference Range Interpretation Comments CO2 (test code = CO2) 25 24-32 [facility]2016-02-14 23:23:00 Test Item Value Reference Range Interpretation Comments Potassium Lvl (test code = Potassium 3.8 3.5-5.1 Lvl) [facility]2016-02-14 23:23:00 Test Item Value Reference Range Interpretation Comments Alk Phos (test code = Alk Phos) 84 39-136 [facility]2016-02-14 23:23:00 Test Item Value Reference Range Interpretation Comments BUN (test code = BUN) 16 7-22 [facility]2016-02-14 23:23:00 Test Item Value Reference Range Interpretation Comments Glucose Lvl (test code = Glucose Lvl) 179 70-99 [facility] HeightsHmaiqzwWUIICCKVUJ2415-71-86 23:23:00 Test Item Value Reference Range Interpretation Comments RBC (test code = RBC) 5.16 4.20-5.40 [facility] HeightsHjjxoroNWXCPKINEV2283-00-80 23:23:00 Test Item Value Reference Range Interpretation Comments Hgb (test code = Hgb) 14.5 12.0-16.0 [facility] HeightsBjsceozRESOSSJIZG7048-76-95 23:23:00 Test Item Value Reference Range Interpretation Comments Hct (test code = Hct) 43.6 36.0-48.0 [facility] HeightsSyuerozYEIEHOAERJ7474-03-01 23:23:00 Test Item Value Reference Range Interpretation Comments MCH (test code = MCH) 28.1 pg 27.0-31.0 [facility] HeightsOwlaotcBHELIMMSEH6416-59-39 23:23:00 Test Item Value Reference Range Interpretation Comments MCHC (test code = MCHC) 33.2 32.0-36.0 [facility] HeightsOqqerxcJUMEJQFNTY0587-63-37 23:23:00 Test Item Value Reference Range Interpretation Comments RDW (test code = RDW) 13.2 11.5-14.5 [facility] HeightsGplxkqtZHKPUIEVHT2210-32-19 23:23:00 Test Item Value Reference Range Interpretation Comments MCV (test code = MCV) 84.5 80.0-98.0 [facility] HeightsXoykwouSCUUEICFIK5624-84-22 23:23:00 Test Item Value Reference Range Interpretation Comments MPV (test code = MPV) 7.4 7.4-10.4 [facility] HeightsIbiqaixFNXREHKFLM6547-31-39 23:23:00 Test Item Value Reference Range Interpretation Comments WBC (test code = WBC) 22.9 3.7-10.4 [facility] HeightsEkhbfejAISBYCGWMJ1504-93-07 23:23:00 Test Item Value Reference Range Interpretation Comments Tot Cell Ct (test code = Tot Cell Ct) 100 1 [facility] HeightsLhdrqhxLQHONNWHOE1594-06-23 23:23:00 Test Item Value Reference Range Interpretation Comments Segs (test code = Segs) 86.0 45.0-75.0 [facility] HeightsWzasdfwPIQUPESVOI0290-36-76 23:23:00 Test Item Value Reference Range Interpretation Comments Bands (test code = 2.0 See_Comment [Automat ed message] The Bands) system which ge nerated this result transmit joanna reference range : <=11.0. The reference r angel was not used to interpr et this result as shirley l/abnormal. [facility] HeightsTmbxucnNVZOBKTDWC9303-51-47 23:23:00 Test Item Value Reference Range Interpretation Comments Monocytes (test code = Monocytes) 2.0 2.0-12.0 [facility] HeightsSfavihoDZSDQSRWKY9061-15-09 23:23:00 Test Item Value Reference Range Interpretation Comments Atypical Lymphs (test code = Atypical 0.0 Lymphs) [facility] HeightsBmboiyoRVWLAFRBTF2299-85-76 23:23:00 Test Item Value Reference Range Interpretation Comments Eosinophils (test code = 1.0 See_Comment [A utomated message] The Eosinophils) system which ge nerated this result tra nsmitted reference range : <=4.0. The reference r angel was not used to int erpret this result as normal/abnormal . [facility] HeightsQomczpuLNOFIXWNPT1071-44-42 23:23:00 Test Item Value Reference Range Interpretation Comments Plt Morph (test code = Normal (03/21/15 5:23 Plt Morph) PM) [facility] HeightsUvjqavfGJXTOAZBWY6191-24-86 23:23:00 Test Item Value Reference Range Interpretation Comments RBC Morph (test code = Normal (03/21/15 5:23 RBC Morph) PM) [facility] HeightsFgujlwvMNTPYMRBRE8500-34-52 23:23:00 Test Item Value Reference Range Interpretation Comments Segs-Bands # (test code = Segs-Bands #) 20.2 1.5-8.1 [facility] HeightsPcbhfiuZVVQISPKVP5609-22-80 23:23:00 Test Item Value Reference Range Interpretation Comments Monocytes # (test code 0.5 See_Comment [Aut omated message] The = Monocytes #) system which generated this result tra nsmitted reference range : <=0.8. The reference r angel was not used to int erpret this result as normal/abnormal . [facility] HeightsUnqsnlzQCEJQUOXVK5215-02-54 23:23:00 Test Item Value Reference Range Interpretation Comments Lymphocytes # (test code = Lymphocytes 2.1 1.0-5.5 #) [facility] HeightsFmotzmkERBPTBKVYY5170-51-32 23:23:00 Test Item Value Reference Range Interpretation Comments Eosinophils # (test code 0.2 See_Comment [A utomated message] The = Eosinophils #) system whic h generated this result tra nsmitted reference range : <=0.5. The reference r angel was not used to int erpret this result as normal/abnormal . [facility]SnppdrmMOXWRWTWAI1141-88-36 23:23:00 Test Item Value Reference Range Interpretation Comments Lymphocytes (test code = Lymphocytes) 9.0 20.0-40.0 [facility] EQZI2524-05-42 14:22:00 Test Item Value Reference Range Interpretation Comments U Preg (test code = U Negative (09/09/14 9:22 Preg) AM) [facility]2015-06-27 09:12:00 Test Item Value Reference Range Interpretation Comments eGFR (test code = eGFR) 89 [facility]2015-06-27 09:12:00 Test Item Value Reference Range Interpretation Comments Albumin Lvl (test code = Albumin Lvl) 2.9 3.5-5.0 [facility]2015-06-27 09:12:00 Test Item Value Reference Range Interpretation Comments ALT (test code = ALT) 49 See_Comment [Auto mated message] The system which ge nerated this result transmit joanna reference range : <=65. The reference range was not used to interpr et this result as shirlye l/abnormal. [facility]2015-06-27 09:12:00 Test Item Value Reference Range Interpretation Comments Bili Total (test code = Bili Total) 0.3 0.2-1.3 [facility]2015-06-27 09:12:00 Test Item Value Reference Range Interpretation Comments AST (test code = AST) 30 See_Comment [Auto mated message] The system which ge nerated this result transmit joanna reference range : <=37. The reference range was not used to interpr et this result as shirley l/abnormal. [facility]2015-06-27 09:12:00 Test Item Value Reference Range Interpretation Comments Alk Phos (test code = Alk Phos) 92 39-136 [facility]2015-06-27 09:12:00 Test Item Value Reference Range Interpretation Comments Glucose Lvl (test code = Glucose Lvl) 135 70-99 [facility]2015-06-27 09:12:00 Test Item Value Reference Range Interpretation Comments BUN (test code = BUN) 4 7-22 [facility]2015-06-27 09:12:00 Test Item Value Reference Range Interpretation Comments Creatinine Lvl (test code = Creatinine 0.9 0.5-1.4 Lvl) [facility]2015-06-27 09:12:00 Test Item Value Reference Range Interpretation Comments Sodium Lvl (test code = Sodium Lvl) 138 135-145 [facility]2015-06-27 09:12:00 Test Item Value Reference Range Interpretation Comments Potassium Lvl (test code = Potassium 3.6 3.5-5.1 Lvl) [facility]2015-06-27 09:12:00 Test Item Value Reference Range Interpretation Comments Total Protein (test code = Total 6.1 6.4-8.4 Protein) [facility]2015-06-27 09:12:00 Test Item Value Reference Range Interpretation Comments Chloride Lvl (test code = Chloride Lvl) 106 95-109 [facility]2015-06-27 09:12:00 Test Item Value Reference Range Interpretation Comments CO2 (test code = CO2) 25 24-32 [facility]2015-06-27 09:12:00 Test Item Value Reference Range Interpretation Comments Calcium Lvl (test code = Calcium Lvl) 8.7 8.5-10.5 [facility]2015-06-27 09:12:00 Test Item Value Reference Range Interpretation Comments A/G Ratio (test code = A/G Ratio) 0.9 0.7-1.6 [facility]2015-06-27 09:12:00 Test Item Value Reference Range Interpretation Comments AGAP (test code = AGAP) 10.6 10.0-20.0 [facility]2015-06-27 09:12:00 Test Item Value Reference Range Interpretation Comments B/C Ratio (test code = B/C Ratio) 4 6-25 [facility]2015-06-27 09:12:00 Test Item Value Reference Range Interpretation Comments Globulin (test code = Globulin) 3.2 2.0-4.0 [facility] HeightsLpwligyEFOCABCMBL4214-48-17 09:12:00 Test Item Value Reference Range Interpretation Comments MCH (test code = MCH) 28.5 pg 27.0-31.0 [facility] HeightsCekosazZEARAMCQKV4518-69-68 09:12:00 Test Item Value Reference Range Interpretation Comments Hct (test code = Hct) 33.5 36.0-48.0 [facility] HeightsKikchqyEXHQWLKAJO3466-32-42 09:12:00 Test Item Value Reference Range Interpretation Comments MCHC (test code = MCHC) 33.0 32.0-36.0 [facility] HeightsKnqmaabQLXALENYSP3636-73-92 09:12:00 Test Item Value Reference Range Interpretation Comments MCV (test code = MCV) 86.2 80.0-98.0 [facility] HeightsHrqleayVZZKNTYVID7388-05-15 09:12:00 Test Item Value Reference Range Interpretation Comments WBC (test code = WBC) 14.9 3.7-10.4 [facility] HeightsJsisdfdHMUCSLYDRD4289-16-11 09:12:00 Test Item Value Reference Range Interpretation Comments RBC (test code = RBC) 3.88 4.20-5.40 [facility] HeightsAmfqplzRJVJMTLQNW2301-58-22 09:12:00 Test Item Value Reference Range Interpretation Comments RDW (test code = RDW) 13.8 11.5-14.5 [facility] HeightsGbcphyuRYMPDHCSED4845-49-56 09:12:00 Test Item Value Reference Range Interpretation Comments Hgb (test code = Hgb) 11.1 12.0-16.0 [facility] HeightsJcktqddEVIREJDWBV5956-63-04 09:12:00 Test Item Value Reference Range Interpretation Comments MPV (test code = MPV) 8.3 7.4-10.4 [facility] HeightsLjpyanpHJTKTXJYWU8376-47-36 09:12:00 Test Item Value Reference Range Interpretation Comments Platelet (test code = Platelet) 356 133-450 [facility] HeightsSenfzfuKUPBQJSYHS5616-53-58 09:12:00 Test Item Value Reference Range Interpretation Comments Basophils # (test code 0.1 See_Comment [Aut omated message] The = Basophils #) system which generated this result tra nsmitted reference range : <=0.2. The reference r angel was not used to int erpret this result as normal/abnormal . [facility] HeightsNigdsebQYYKTNFYNG9855-54-57 09:12:00 Test Item Value Reference Range Interpretation Comments Monocytes # (test code 0.8 See_Comment [Aut omated message] The = Monocytes #) system which generated this result tra nsmitted reference range : <=0.8. The reference r angel was not used to int erpret this result as normal/abnormal . [facility] HeightsYjmojsbZOAMLRAEIE0684-24-70 09:12:00 Test Item Value Reference Range Interpretation Comments Lymphocytes # (test code = Lymphocytes 1.6 1.0-5.5 #) [facility] HeightsYhbadgsQGAICFNZPW6137-16-69 09:12:00 Test Item Value Reference Range Interpretation Comments Segs-Bands # (test code = Segs-Bands #) 12.4 1.5-8.1 [facility] HeightsYnqujuuLFYXSCWBTS8227-51-10 09:12:00 Test Item Value Reference Range Interpretation Comments Basophils (test code = 0.3 See_Comment [Aut omated message] The Basophils) system which ge nerated this result tra nsmitted reference range : <=1.0. The reference r angel was not used to int erpret this result as normal/abnormal . [facility] HeightsJbgnpfoPQUEBUBIZI3571-32-44 09:12:00 Test Item Value Reference Range Interpretation Comments Eosinophils (test code = 0.2 See_Comment [A utomated message] The Eosinophils) system which ge nerated this result tra nsmitted reference range : <=4.0. The reference r angel was not used to int erpret this result as normal/abnormal . [facility] HeightsBjvesrbXNTDPDROMF7539-64-31 09:12:00 Test Item Value Reference Range Interpretation Comments Monocytes (test code = Monocytes) 5.4 2.0-12.0 [facility] HeightsAgzngnbYOIOELZKCO8473-42-35 09:12:00 Test Item Value Reference Range Interpretation Comments Lymphocytes (test code = Lymphocytes) 11.0 20.0-40.0 [facility] HeightsPzuhqlpKQENKWJMUO6151-07-89 09:12:00 Test Item Value Reference Range Interpretation Comments Segs (test code = Segs) 83.1 45.0-75.0 [facility]2015-06-26 22:39:00 Test Item Value Reference Range Interpretation Comments Creatinine Lvl (test code = Creatinine 0.9 0.5-1.4 Lvl) [facility]2015-06-26 22:39:00 Test Item Value Reference Range Interpretation Comments eGFR (test code = eGFR) 89 [facility]FwhryogLPDFQYHTMB2584-44-19 22:39:00 Test Item Value Reference Range Interpretation Comments Platelet (test code = Platelet) 344 133-450 [facility]2015-06-26 09:09:00 Test Item Value Reference Range Interpretation Comments eGFR (test code = eGFR) 103 [facility]2015-06-26 09:09:00 Test Item Value Reference Range Interpretation Comments Bili Total (test code = Bili Total) 0.3 0.2-1.3 [facility]2015-06-26 09:09:00 Test Item Value Reference Range Interpretation Comments A/G Ratio (test code = A/G Ratio) 0.9 0.7-1.6 [facility]2015-06-26 09:09:00 Test Item Value Reference Range Interpretation Comments ALT (test code = ALT) 37 See_Comment [Auto mated message] The system which ge nerated this result transmit joanna reference range : <=65. The reference range was not used to interpr et this result as shirley l/abnormal. [facility]2015-06-26 09:09:00 Test Item Value Reference Range Interpretation Comments Globulin (test code = Globulin) 3.0 2.0-4.0 [facility]2015-06-26 09:09:00 Test Item Value Reference Range Interpretation Comments Alk Phos (test code = Alk Phos) 79 39-136 [facility]2015-06-26 09:09:00 Test Item Value Reference Range Interpretation Comments AST (test code = AST) 19 See_Comment [Auto mated message] The system which ge nerated this result transmit joanna reference range : <=37. The reference range was not used to interpr et this result as shirley l/abnormal. [facility]2015-06-26 09:09:00 Test Item Value Reference Range Interpretation Comments Albumin Lvl (test code = Albumin Lvl) 2.6 3.5-5.0 [facility]2015-06-26 09:09:00 Test Item Value Reference Range Interpretation Comments Total Protein (test code = Total 5.6 6.4-8.4 Protein) [facility]2015-06-26 09:09:00 Test Item Value Reference Range Interpretation Comments CO2 (test code = CO2) 25 24-32 [facility]2015-06-26 09:09:00 Test Item Value Reference Range Interpretation Comments Chloride Lvl (test code = Chloride Lvl) 109 95-109 [facility]2015-06-26 09:09:00 Test Item Value Reference Range Interpretation Comments B/C Ratio (test code = B/C Ratio) 9 6-25 [facility]2015-06-26 09:09:00 Test Item Value Reference Range Interpretation Comments Calcium Lvl (test code = Calcium Lvl) 7.8 8.5-10.5 [facility]2015-06-26 09:09:00 Test Item Value Reference Range Interpretation Comments AGAP (test code = AGAP) 11.9 10.0-20.0 [facility]2015-06-26 09:09:00 Test Item Value Reference Range Interpretation Comments Creatinine Lvl (test code = Creatinine 0.8 0.5-1.4 Lvl) [facility]2015-06-26 09:09:00 Test Item Value Reference Range Interpretation Comments BUN (test code = BUN) 7 7-22 [facility]2015-06-26 09:09:00 Test Item Value Reference Range Interpretation Comments Glucose Lvl (test code = Glucose Lvl) 91 70-99 [facility]2015-06-26 09:09:00 Test Item Value Reference Range Interpretation Comments Potassium Lvl (test code = Potassium 3.9 3.5-5.1 Lvl) [facility]2015-06-26 09:09:00 Test Item Value Reference Range Interpretation Comments Sodium Lvl (test code = Sodium Lvl) 142 135-145 [facility]2015-06-26 09:09:00 Test Item Value Reference Range Interpretation Comments Magnesium Lvl (test code = Magnesium 1.8 1.8-2.4 Lvl) [facility] HeightsDpklievQDMZQYRWPH0222-19-13 09:09:00 Test Item Value Reference Range Interpretation Comments PT (test code = PT) 13.8 s 12.0-14.7 [facility] HeightsDmctrnjABYUNRJWEX2562-51-96 09:09:00 Test Item Value Reference Range Interpretation Comments INR (test code = INR) 1.06 0.85-1.17 [facility] HeightsXqqsnnsHBAVRAPEGU3956-50-43 09:09:00 Test Item Value Reference Range Interpretation Comments Platelet (test code = Platelet) 268 133-450 [facility] HeightsYzekhnuQUXUJIFYVB5375-88-22 09:09:00 Test Item Value Reference Range Interpretation Comments MCHC (test code = MCHC) 34.2 32.0-36.0 [facility] HeightsFwlyirmGFXVRGVUTZ9700-39-28 09:09:00 Test Item Value Reference Range Interpretation Comments RDW (test code = RDW) 13.9 11.5-14.5 [facility] HeightsMhgpmljAFKHLEBWUL0427-66-33 09:09:00 Test Item Value Reference Range Interpretation Comments MCV (test code = MCV) 86.6 80.0-98.0 [facility] HeightsQlmkyntIIBUVBWTCH6457-75-12 09:09:00 Test Item Value Reference Range Interpretation Comments MCH (test code = MCH) 29.6 pg 27.0-31.0 [facility] HeightsEkcczqrYWBKYBQKOA0296-61-95 09:09:00 Test Item Value Reference Range Interpretation Comments MPV (test code = MPV) 8.0 7.4-10.4 [facility] HeightsYdsgiynMZUIDNYTFA9501-79-87 09:09:00 Test Item Value Reference Range Interpretation Comments Hct (test code = Hct) 30.2 36.0-48.0 [facility] HeightsJswxeuzNPHVCBLDOO8038-08-08 09:09:00 Test Item Value Reference Range Interpretation Comments RBC (test code = RBC) 3.49 4.20-5.40 [facility] HeightsXdpqnspIRHBKSZGPG8792-32-62 09:09:00 Test Item Value Reference Range Interpretation Comments Hgb (test code = Hgb) 10.3 12.0-16.0 [facility] HeightsKulptuvUROHTDTNRJ8430-84-79 09:09:00 Test Item Value Reference Range Interpretation Comments WBC (test code = WBC) 8.5 3.7-10.4 [facility]2015-06-25 09:49:00 Test Item Value Reference Range Interpretation Comments Magnesium Lvl (test code = Magnesium 1.9 1.8-2.4 Lvl) [facility] MXFNN6754-03-90 09:49:00 Test Item Value Reference Range Interpretation Comments ALT (test code = ALT) 33 See_Comment [Auto mated message] The system which ge nerated this result transmit joanna reference range : <=65. The reference range was not used to interpr et this result as shirley l/abnormal. [facility]2015-06-25 09:49:00 Test Item Value Reference Range Interpretation Comments A/G Ratio (test code = A/G Ratio) 0.9 0.7-1.6 [facility]2015-06-25 09:49:00 Test Item Value Reference Range Interpretation Comments AST (test code = AST) 40 See_Comment [Auto mated message] The system which ge nerated this result transmit joanna reference range : <=37. The reference range was not used to interpr et this result as shirley l/abnormal. [facility]2015-06-25 09:49:00 Test Item Value Reference Range Interpretation Comments Bili Total (test code = Bili Total) 0.7 0.2-1.3 [facility]2015-06-25 09:49:00 Test Item Value Reference Range Interpretation Comments Alk Phos (test code = Alk Phos) 88 39-136 [facility]2015-06-25 09:49:00 Test Item Value Reference Range Interpretation Comments Total Protein (test code = Total 5.9 6.4-8.4 Protein) [facility]2015-06-25 09:49:00 Test Item Value Reference Range Interpretation Comments Albumin Lvl (test code = Albumin Lvl) 2.8 3.5-5.0 [facility]2015-06-25 09:49:00 Test Item Value Reference Range Interpretation Comments Globulin (test code = Globulin) 3.1 2.0-4.0 [facility]2015-06-25 09:49:00 Test Item Value Reference Range Interpretation Comments AGAP (test code = AGAP) 11.7 10.0-20.0 [place] 634495-06-25 09:49:00 Test Item Value Reference Range Interpretation Comments Calcium Lvl (test code = Calcium Lvl) 8.0 8.5-10.5 [facility]2015-06-25 09:49:00 Test Item Value Reference Range Interpretation Comments Glucose Lvl (test code = Glucose Lvl) 75 70-99 [place] 634495-06-25 09:49:00 Test Item Value Reference Range Interpretation Comments BUN (test code = BUN) 6 7-22 [facility]2015-06-25 09:49:00 Test Item Value Reference Range Interpretation Comments Potassium Lvl (test code = Potassium 3.7 3.5-5.1 Lvl) [facility]2015-06-25 09:49:00 Test Item Value Reference Range Interpretation Comments Chloride Lvl (test code = Chloride Lvl) 109 95-109 [facility]2015-06-25 09:49:00 Test Item Value Reference Range Interpretation Comments Sodium Lvl (test code = Sodium Lvl) 140 135-145 [facility]2015-06-25 09:49:00 Test Item Value Reference Range Interpretation Comments B/C Ratio (test code = B/C Ratio) 8 07-30 [facility]2015-06-25 09:49:00 Test Item Value Reference Range Interpretation Comments CO2 (test code = CO2) [facility] HeightsSqrggjbPRTHLQLBEF8162-10-50 09:49:00 Test Item Value Reference Range Interpretation Comments MCV (test code = MCV) 86.9 80.0-98.0 [facility] HeightsTuhodrvIDBLWDTFAU1247-92-17 09:49:00 Test Item Value Reference Range Interpretation Comments Hct (test code = Hct) 32.1 36.0-48.0 [facility] HeightsPwbmstwKSBIHMMLIR5540-69-34 09:49:00 Test Item Value Reference Range Interpretation Comments Hgb (test code = Hgb) 10.7 12.0-16.0 [facility] HeightsEstgvnyZJHLSLPPDE0629-27-33 09:49:00 Test Item Value Reference Range Interpretation Comments MPV (test code = MPV) 8.0 7.4-10.4 [facility] HeightsTerpqtuHHTBTPAVXX5569-61-17 09:49:00 Test Item Value Reference Range Interpretation Comments RDW (test code = RDW) 14.0 11.5-14.5 [facility] HeightsMrrsvkhSQNHBFOQLR3844-51-45 09:49:00 Test Item Value Reference Range Interpretation Comments MCHC (test code = MCHC) 33.5 32.0-36.0 [facility] HeightsYmzjethPEAZQOYCEU3198-31-53 09:49:00 Test Item Value Reference Range Interpretation Comments MCH (test code = MCH) 29.1 pg 27.0-31.0 [facility] HeightsMxaskbdOBDUMDCYHI7280-46-14 09:49:00 Test Item Value Reference Range Interpretation Comments WBC (test code = WBC) 10.1 3.7-10.4 [facility] HeightsWklqwsgDYJQFPJWPU2486-69-20 09:49:00 Test Item Value Reference Range Interpretation Comments RBC (test code = RBC) 3.69 4.20-5.40 [facility] HeightsMkieohbMFNBSYFCNX3845-26-20 09:49:00 Test Item Value Reference Range Interpretation Comments Eosinophils (test code = 1.1 See_Comment [A utomated message] The Eosinophils) system which ge nerated this result tra nsmitted reference range : <=4.0. The reference r angel was not used to int erpret this result as normal/abnormal . [facility] HeightsLxrtokrXMTKTXNHSC1661-29-33 09:49:00 Test Item Value Reference Range Interpretation Comments Segs (test code = Segs) 70.0 45.0-75.0 [facility] HeightsPmzyjbaGLPGHNDKOX1709-53-86 09:49:00 Test Item Value Reference Range Interpretation Comments Monocytes (test code = Monocytes) 6.2 2.0-12.0 [facility] HeightsDbseimaOSYNTNDXNJ6152-59-13 09:49:00 Test Item Value Reference Range Interpretation Comments Lymphocytes (test code = Lymphocytes) 22.3 20.0-40.0 [facility] HeightsYnkecndUSSMFHJBLQ8130-94-68 09:49:00 Test Item Value Reference Range Interpretation Comments Eosinophils # (test code 0.1 See_Comment [A utomated message] The = Eosinophils #) system [facility] h generated this result tra nsmitted reference range : <=0.5. The reference r angel was not used to int erpret this result as normal/abnormal . [facility] HeightsYvrvmpwHQNWUZHDCZ7336-57-32 09:49:00 Test Item Value Reference Range Interpretation Comments Segs-Bands # (test code = Segs-Bands #) 7.1 1.5-8.1 [facility] HeightsPwohwsiMKBVWAGQJT9373-45-37 09:49:00 Test Item Value Reference Range Interpretation Comments Basophils (test code = 0.4 See_Comment [Aut omated message] The Basophils) system which ge nerated this result tra nsmitted reference range : <=1.0. The reference r angel was not used to int erpret this result as normal/abnormal . [facility] HeightsBojabdbJSUYZRZWUK7593-64-37 09:49:00 Test Item Value Reference Range Interpretation Comments Monocytes # (test code 0.6 See_Comment [Aut omated message] The = Monocytes #) system which generated this result tra nsmitted reference range : <=0.8. The reference r angel was not used to int erpret this result as normal/abnormal . [facility] HeightsWdnphriCPSCXQXCQK4189-26-45 09:49:00 Test Item Value Reference Range Interpretation Comments Lymphocytes # (test code = Lymphocytes 2.3 1.0-5.5 #) [id number] 17:41:00 Test Item Value Reference Range Interpretation Comments PTT (test code = PTT) 31.0 s 22.9-35.8 [facility] [id number] 17:41:00 Test Item Value Reference Range Interpretation Comments UA Bacteria (test code = UA Few /HPF Bacteria) [facility] [id number] 17:41:00 Test Item Value Reference Range Interpretation Comments UA WBC (test code = UA WBC) 0-2 /HPF [facility] [id number] 17:41:00 Test Item Value Reference Range Interpretation Comments UA RBC (test code = 0-2 /HPF See_Comment [Automa joanna message] The UA RBC) system which ge nerated this result tra nsmitted reference range : <=2. The reference range was not used to interpr et this result as shirley l/abnormal. [facility] [id number] 17:41:00 Test Item Value Reference Range Interpretation Comments UA Nitrite (test code Negative (07/29/14 12:41 = UA Nitrite) PM) [facility] [id number] 17:41:00 Test Item Value Reference Range Interpretation Comments UA Sq Epi (test code = UA Sq Epi) Few /LPF [facility] [id number] 17:41:00 Test Item Value Reference Range Interpretation Comments UA Leuk Est (test Negative (07/29/14 12:41 code = UA Leuk Est) PM) [facility] [id number] 17:41:00 Test Item Value Reference Range Interpretation Comments UA Blood (test code = Trace *ABN*(07/29/14 UA Blood) 12:41 PM) [facility] [id number] 17:41:00 Test Item Value Reference Range Interpretation Comments UA Bili (test code = Negative *NA*(07/29/14 UA Bili) 12:41 PM) [facility] [id number] 17:41:00 Test Item Value Reference Range Interpretation Comments UA Glucose (test code Negative (07/29/14 12:41 = UA Glucose) PM) [facility] [id number] 17:41:00 Test Item Value Reference Range Interpretation Comments UA Protein (test code = Trace *ABN*(07/29/14 UA Protein) 12:41 PM) [facility] [id number] 17:41:00 Test Item Value Reference Range Interpretation Comments UA pH (test code = UA pH) 5.5 1 5.0-8.0 [facility] [id number] 17:41:00 Test Item Value Reference Range Interpretation Comments UA Urobilinogen (test code = UA 0.2 0.1-1.0 Urobilinogen) [facility] [id number] 17:41:00 Test Item Value Reference Range Interpretation Comments UA Spec Grav (test >=1.030 *ABN*(07/29/14 code = UA Spec Grav) 12:41 PM) [facility] [id number] 17:41:00 Test Item Value Reference Range Interpretation Comments UA Turbidity (test code = Clear (07/29/14 12:41 UA Turbidity) PM) [facility] [id number] 17:41:00 Test Item Value Reference Range Interpretation Comments UA Color (test code = Yellow *NA*(07/29/14 UA Color) 12:41 PM) [facility] [id number] 17:41:00 Test Item Value Reference Range Interpretation Comments UA Ketones (test code Negative *NA*(07/29/14 = UA Ketones) 12:41 PM) [facility] [id number] 15:22:00 Test Item Value Reference Range Interpretation Comments CK MB (test code = CK MB) 0.7 0.5-3.6 [facility] [id number] 15:22:00 Test Item Value Reference Range Interpretation Comments Troponin-I (test code no gt See_Comment [Auto mated message] The = Troponin-I) system which g enerated this result transmit joanna reference range : <=0.40. The reference r angel was not used to interpr et this result as shirley l/abnormal. [facility] [id number] 15:22:00 Test Item Value Reference Range Interpretation Comments Total CK (test code = Total CK) 44 12-191 [facility] [id number] 15:22:00 Test Item Value Reference Range Interpretation Comments CK MB Index (test 1.6 See_Comment [Automate d message] The code = CK MB Index) system w [facility] generated this result transmit joanna reference range : <=2.5. The reference range was not used to interpr et this result as shirley l/abnormal. [facility] [id number] 15:22:00 Test Item Value Reference Range Interpretation Comments Lipase Lvl (test code = Lipase Lvl) 100 73-393 [id number] 15:22:00 Test Item Value Reference Range Interpretation Comments S Preg (test code = S Negative *NA*(07/29/14 Preg) 10:22 AM) [id number] 15:22:00 Test Item Value Reference Range Interpretation Comments Basophils # (test code 0.1 See_Comment [Aut omated message] The = Basophils #) system which generated this result tra nsmitted reference range : <=0.2. The reference r angel was not used to int erpret this result as normal/abnormal . [id number] 15:22:00 Test Item Value Reference Range Interpretation Comments Monocytes # (test code 0.5 See_Comment [Aut omated message] The = Monocytes #) system which generated this result tra nsmitted reference range : <=0.8. The reference r angel was not used to int erpret this result as normal/abnormal . [facility] [id number] 15:22:00 Test Item Value Reference Range Interpretation Comments Eosinophils # (test code 0.2 See_Comment [A utomated message] The = Eosinophils #) system [facility] generated this result tra nsmitted reference range : <=0.5. The reference r angel was not used to int erpret this result as normal/abnormal . [facility] [id number] 15:22:00 Test Item Value Reference Range Interpretation Comments Monocytes (test code = Monocytes) 3.7 2.0-12.0 [facility] [id number] 15:22:00 Test Item Value Reference Range Interpretation Comments Eosinophils (test code = 2.0 See_Comment [A utomated message] The Eosinophils) system which Cer[employer] nerated this result tra nsmitted reference range : <=4.0. The reference r angel was not used to int erpret this result as normal/abnormal . [facility] [id number] 15:22:00 Test Item Value Reference Range Interpretation Comments Basophils (test code = 0.5 See_Comment [Aut omated message] The Basophils) system which ge nerated this result tra nsmitted reference range : <=1.0. The reference r angel was not used to int erpret this result as normal/abnormal . [facility] [id number] 15:22:00 Test Item Value Reference Range Interpretation Comments Segs-Bands # (test code = Segs-Bands #) 9.0 1.5-8.1 [facility] [id number] 15:22:00 Test Item Value Reference Range Interpretation Comments Segs (test code = Segs) 74.3 45.0-75.0 [facility] [id number] 15:22:00 Test Item Value Reference Range Interpretation Comments Lymphocytes (test code = Lymphocytes) 19.5 20.0-40.0 [facility] [id number] 15:22:00 Test Item Value Reference Range Interpretation Comments Lymphocytes # (test code = Lymphocytes 2.4 1.0-5.5 #) [facility] Notes Date/Time Note Provider Source 2015-03-21 NAME: PAVITHRA ENGLISH [facility] 17:45:00-00:00 : 1990 SEX: F Ordering Physician: Greg Arroyo ED Abdomen/Pelvis IV contrast only CT : Mar 21, 2015 06:16:00 PM. CLINICAL INDICATION: Right l ower quadrant pain, vaginal pain. Rule out appendicitis. Comparison Examination: None. TECHNIQUE: Sequential trans- axial images were obtained with a multi-detector helical CT after administration of iodinated contrast. Coronal and sagittal reconstructions were obtained. 100cc of Omnipaque contrast material was used for the exam. No oral contrast material was used for the exam. The total exam DLP is 725 mGy-cm. FINDINGS: The lung bases are clear. No effusion or pneumothorax. No pericardial effusion. The liver enhances normally. The gallbladder is not ident ified. No abnormal findings are seen in the gallbladder fossa. The pancreas appears normal without surrounding inflammatory changes. The spleen enhances normally. The adrenal glands are normal in size and shape. The kidneys are normal in si ze and shape. There is no perinephric fat stranding. There is no pelviectasis/hydroureter. The visualized components of the ureters demonstrate no stones. The urinary bladder is partially decompressed but otherwise unremar kable. The uterus and ovaries appea r normal in size and contour. No adnexal fluid is detected. Lack of oral contrast limits ealuation of the bowel; given these limitations, the following findings are made. The stomach, small bowel, and large bowel do not demonstrate obstructive changes or surroun ding inflammatory changes. T he appendix measures approximately 6 mm in diameter. It is fluid-filled and the romero are mildly hyperemic. Mild periappendiceal fat stranding is noted, predominately surrounding the proximal appendix. No free fluid or free air is identified in the abdomen or pelvis. No pathologically enlarged lymph nodes are seen in the abdomen, retroperitoneum, or pelvis. The aorta is normal in caliber. No aggressive osseous lesion is detected. OPINION: 1. Findings likely related t o early acute appendicitis.. No associated complicated features are detected. SL: 2014-09-09 Name: PAVITHRA ENGLISH [facility] 10:10:00-00:00 : 1990 Ordering Physician: Carlos Bolton ERCP Diagnostic DX : Sep 09, 2014 12:27:00 PM. CLINICAL INDICATION: pain Comparison Examination: None. FINDINGS: A total of 5 spot fluoroscopic images from endoscopic retrograde cholangiopancreatography are submitted for evaluation. Ballon sweep procedure was p erformed. There are no residual filling defects noted within the common bile duct. CBC stent was left in place. Please refer to the official procedure report fo r additional details. Total Fluoro Time = 65 sec Total Dose = 1.64 rad SL: 2014-07-31 Name: PAVITHRA ENGLISH [facility] 07:43:00-00:00 : 1990 Ordering Physician: Carlos Bolton ERCP Diagnostic DX : Jul 31, 2014 08:46:00 AM. CLINICAL INDICATION: PAIN Comparison Examination: None. FINDINGS: A total of 5 spot fluoroscopic images from endoscopic retrograde cholangiopancreatography are submitted for evaluation. There are no persistent fill ing defects within the common bile duct to suggest choledocholithiasis. Ballon sweep procedure was p erformed. There are no residual filling defects noted within the common bile duct. The common bile duct appears mildly dilated. Please refer to the official procedure report fo r additional details. Total Fluoro Time = 154.5 seconds. The total dose was 5 rads. SL: 2014-07-29 Name: PAVITHRA ENGLISH [facility] 18:00:08-00:00 : 1990 SEX: F Ordering Physician: Dimitris Hurd Abdomen without contrast MRI : Jul 29, 2014 06:3 3:00 PM. CLINICAL INDICATION: Abdominal pain, acute Comparison Examination: Abdominal sonogram 2014 TECHNIQUE: Magnetic resonance cholangio pancreatography is performed with noncontrast axial in and out of phase gradient echo imaging. Coronal T2, axial T2 and oblique axial T2 images are also obtained. Thick slab MRCP images and maximum intensity projection berny ges are also obtained. FINDINGS: There is normal liver contou r and morphology with normal signal intensity. There is periportal edema. There is no intrahepatic biliary ductal dilatation. There are multiple stones wi thin the gallbladder. There is gallbladder wall edema. A 4 mm stone is present within the gallbladder neck/proximal cystic duct. The cystic duct is dilated the level of its i nsertion on the common bile duct where there is ill-defined hypointense signal which may be related to chronic inflammatory changes and fibrosis versus a second small cystic duct stone. The common bile duct is normal in caliber me asuring 6 mm in maximum diameter. There is normal distal tapering of the common bile duct. The pancreatic duct is unremarkable. There are small intraductal stones within the CBD. The visualized spleen, pancr eas, adrenals and kidneys are normal. There is no retroperitoneal lymphadenopathy or abdominal ascites. The visualized bowel loops are grossly unremarka ble. IMPRESSION: 1. Cholelithiasis with stone at the junction of the gallbladder neck and proximal cystic duct and gallbladder wall edema suggests calculus cholecystitis 2. Choledocholithiasis with stones layering in t he common bile duct. 3. Possible small cystic matty t stone versus fibrotic scar tissue at the insertion of the cystic duct into the common bile duct SL: 24 2014-07-29 Name: PAVITHRA ENGLISH [facility] 11:49:54-00:00 : 1990 Ordering Physician: Yamileth Forbes Abdomen RUQ US : Jul 29, 2014 10:12:00 AM. CLINICAL INDICATION: Abdominal pain, acute Comparison Examination: None. FINDINGS: Liver parenchymal echotexture is slightly echogenic and may be consistent with fatty infiltration. There is no intrahepatic biliary ductal dilatation. The portal vein is patent with hepatopeda l flow. The right liver ofelia ures 18 cm in length. The portal vein measures 10 mm in diameter. Evaluation of the gallbladde r shows several shadowing gallstones. There is no pericholecystic fluid. The gall bladder wall measures 1.8-3.2 mm. There was a sonographic Hackett's sign elicited du ring this exam. The common b ile duct measures 6.1 mm in diameter at the gilberto hepatis. The visualized pancreas is unremarkable. The right kidney measures 10 .9 x 3.7 x 5.9 cm in length. There is normal right renal parenchymal echotexture without hydronephrosis. The right renal cortex measures 1.2 cm. There is no right upper quad rant abdominal ascites. The visualized abdominal aorta and IVC are unremarkable. IMPRESSION: 1. Cholelithiasis with borde rline thickened gallbladder wall and sonographic Hackett sign. These findings are suggestive of acute cholecystitis and if clinically indicated would recommend further evaluation with nuclear medicine HIDA scan. SL: 24
[2022-08-17 21:54] LABS: Absolute Lymphocytes (CBC) 3.8 K/uL (0.7-4.9); Hematocrit 41.2 % (36.0-45.0); Lymphocytes % 24.2 % (15.3-44.8); MCV 84.7 fL (80-100); MPV 7.1 fL (7.6-11.3); RBC Red Blood Cell Count 4.86 M/uL (3.86-4.86)
[2022-08-17 21:57] LABS: Specific Gravity 1.019 (1.005-1.030)
[2022-08-17 21:59] LABS: Specific Gravity 1.019 (1.005-1.030); Urine Bacteria <20 /HPF (<20); Urine Bilirubin NEGATIVE (Negative); Urine Blood 3+ (OVER) (Negative); Urine Clarity Extremely Turbid (Clear); Urine Color Brown (Yellow); Urine Crystals Unidentified Few /HPF (None Seen); Urine Glucose NEGATIVE (Negative); Urine Protein TRACE (Negative); Urine RBC >50 /HPF (None Seen); Urine Urobilinogen Normal (Normal); Urine WBC Clump Rare /HPF (None Seen); Urine pH 6.5 (5.0-7.0)
[2022-08-17 22:15] LABS: Albumin 3.5 g/dL (3.4-5.0); Bilirubin Total 0.1 mg/dL (0.2-1.0); Potassium 3.5 mEq/L (3.5-5.1); Protein, Total 7.6 g/dL (6.4-8.2)
--- NOTE | 2022-08-17 22:34 | RAD REPORT ---
EXAM DESCRIPTION: CTAbdomen Pelvis W Contrast - 08/17/2022 10:23 pm CLINICAL HISTORY: Abdominal pain. redness around umbilicus;Abd pain COMPARISON: No comparisons TECHNIQUE: Biphasic CT imaging of the abdomen and pelvis was performed with 100 ml non-ionic IV cont rast. All CT scans are performed using dose optimization technique as appropriate and may include automated exposure control or mA/KV adjustment according to patient size. FINDINGS: The lung bases are clear. The liver demonstrates diffuse fatty infiltration. Spleen, pancreas, adrenal glands and kidneys are w ithin normal limits. No bowel obstruction, free air, free fluid or abscess. Mild superficial skin thickening in the region of the emboli kiss. Appendectomy. No evidence of significant lymphadenopathy. No suspicious bony findings. IMPRESSION: No acute intra-abdominal or pelvic finding. Mild superficial skin thickening in the umbilical region. No abscess seen.
--- NOTE | 2022-08-17 22:52 | ER ---
Nurse's Notes [facility] Name: Carol Renae Age: 32 yrs Sex: Female : 1990 Arrival Date: 08/17/2022 Time: 19:33 Bed 26 Private MD: Diagnosis: Cellulitis of abdominal wall Presentation: 08/17 20:24 Chief complaint: Patient states: multiple abdominal surgeries with lots of scar tissue. lg3 i was roughhousing yesterday with my boyfriend and i felt something rip. now my belly is red, swelling and painful. Coronavirus screen: Client denies travel out of the [place] in the last 14 days. At this time, the client does not indicate any symptoms associated with coronavirus-19. Ebola Screen: No symptoms or risks identified at this time. Initial Sepsis Screen: Does the patient meet any 2 criteria? No. Patient's initial sepsis screen is negative. Does the patient have a suspected source of infection? No. Patient's initial sepsis screen is negative. Risk Assessment: Do you want to hurt yourself or someone else? Patient reports no desire to harm self or others. Onset of symptoms was August 16, 2022. 20:24 Method Of Arrival: Ambulatory lg3 20:24 Acuity: DESTINY 3 lg3 Triage Assessment: 20:27 General: Appears in no apparent distress. uncomfortable, Behavior is calm, cooperative. lg3 Pain: Complains of pain in abdomen. Neuro: No deficits noted. Dos Santos Agitation-Sedation Scale (RASS): 0 - Alert and Calm Level of Consciousness is awake, alert, obeys commands, Oriented to person, place, time, situation. Cardiovascular: No deficits noted. Denies chest pain, shortness of breath. Respiratory: No deficits noted. Airway is patent Respiratory effort is even, unlabored, Respiratory pattern is regular, symmetrical. GI: Abdomen is round non-distended, obese, Abd is soft X 4 quads Abdomen is tender to palpation in umbilical area Reports lower abdominal pain, upper abdominal pain. : No deficits noted. No signs and/or symptoms were reported regarding the genitourinary system. Derm: Skin is intact, is healthy with good turgor, Skin is dry, Skin is normal, Skin temperature is warm. Musculoskeletal: Swelling present in abdomen. 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 - Social history:: Smoking status: Patient reports the use of cigarette tobacco products, smokes one pack cigarettes per day. Patient/guardian denies using alcohol, street drugs. - Family history:: not pertinent. - Hospitalizations: : No recent hospitalization is reported. Screenin:13 [facility] ED Fall Risk Assessment (Adult) History of falling in the last 3 months, kd3 including since admission No falls in past 3 months (0 pts). Abuse screen: Denies threats or abuse. Denies injuries from another. Nutritional screening: No deficits noted. Tuberculosis screening: No symptoms or risk factors identified. Assessment: 23:13 GI: Bowel sounds present X 4 quads. kd3 Vital Signs: 20:24 BP 114 / 94; Pulse 94; Resp 18 S; Temp 97.9(O); Pulse Ox 98% on R/A; Weight 113.4 kg lg3 (R); Height 5 ft. 6 in. (R); 22:19 BP 117 / 73; Pulse 80; Resp 19; Pulse Ox 98% on R/A; kd3 20:24 Body Mass Index 40.35 (113.40 kg, 167.64 cm) lg3 ED Course: 19:34 Patient arrived in ED. jj6 19:56 Thomas Pete MD is Attending Physician. rn 20:27 Triage completed. lg3 20:27 Arm band placed on left wrist. lg3 21:14 Radiology exam delayed due to lab results not completed at this time. (BUN/Creatinine) eh4 test not completed at this time. IV insertion attempt and/or patient not having appropriate IV at this time. 21:42 Inserted saline lock: 20 gauge in left antecubital area, using aseptic technique. Blood ah1 collected. 21:42 CBC with Diff Sent. ah1 21:42 CMP Sent. ah1 21:42 Lipase Sent. ah1 21:42 Test, Urine Sent. ah1 21:42 Urinalysis w/ reflexes Sent. 1 22:19 Cinthya Porras, RN is Primary Nurse. kd3 22:24 CT Abd/Pelvis - IV Contrast Only In Process Unspecified. EDMS 23:13 Patient has correct armband on for positive identification. kd3 23:13 No provider procedures requiring assistance completed. IV discontinued, intact, kd3 bleeding controlled, No redness/swelling at site. Pressure dressing applied. Administered Medications: 23:03 Drug: Trimethoprim-Sulfamethoxazole PO (160 mg-800 mg (DS) 1 tablet Route: PO; kd3 23:03 Drug: Cephalexin PO 500 mg Route: PO; kd3 Medication: 23:13 VIS not applicable for this client. kd3 Outcome: 22:52 Discharge ordered by . rn 23:13 Discharged to home ambulatory. kd3 23:13 Condition: stable 23:13 Discharge instructions given to patient, Instructed on discharge instructions, follow kd3 up and referral plans. Demonstrated understanding of instructions, follow-up care, medications. 23:14 Patient left the ED. kd3 Signatures: Dispatcher [employer] EDMS Thomas Pete MD MD rn Gibson, Lacie, RN RN lg3 Sima White jj6 Cinthya Porras, RN RN kd3 Mika Fitzgerald [facility] Gee Martinez [facility]
--- NOTE | 2022-08-17 22:52 | EDPHYS ---
Physician Documentation [facility] Name: Carol Renae Age: 32 yrs Sex: Female : 1990 Arrival Date: 08/17/2022 Time: 19:33 Bed 26 Private MD: ED Physician Thomas Pete HPI: 08/17 20:46 This 32 yrs old Female presents to ER via Ambulatory with complaints of Abdominal Pain, rn Fever, ABDOMINAL AREA HAS REDNESS AND WARM TO TOUCH. 20:47 The patient presents with abdominal pain in the periumbilical area. Onset: The rn symptoms/episode began/occurred today. The symptoms do not radiate. Associated signs and symptoms: Pertinent negatives: nausea and vomiting, blood in stools, chest pain, constipation, diarrhea, dysuria, shortness of breath, vomiting, vomiting blood. The symptoms are described as burning. Modifying factors: The symptoms are alleviated by nothing, the symptoms are aggravated by touching the area. Severity of pain: At its worst the pain was mild in the emergency department the pain is unchanged. The patient has not experienced similar symptoms in the past. Pt reports redness and pain around belly button, began today after playing with significant other. No direct trauma, but felt a strain. Most of pain on skin and feels burning sensation when something touches it. Also has some deeper pain as well. No fever. . 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 - Social history:: Smoking status: Patient reports the use of cigarette tobacco products, smokes one pack cigarettes per day. Patient/guardian denies using alcohol, street drugs. - Family history:: not pertinent. - Hospitalizations: : No recent hospitalization is reported. ROS: 20:47 Constitutional: Negative for fever, chills, and weight loss, Cardiovascular: Negative rn for chest pain, palpitations, and edema, Respiratory: Negative for shortness of breath, cough, wheezing, and pleuritic chest pain, Abdomen/GI: + abd pain Back: Negative for injury and pain, MS/Extremity: Negative for injury and deformity, Skin: + redness to skin Neuro: Negative for headache, weakness, numbness, tingling, and seizure. Exam: 20:47 Constitutional: This is a well developed, well nourished patient who is awake, alert, rn and in no acute distress. Cardiovascular: Regular rate and rhythm. No pulse deficits. Respiratory: No increased work of breathing, no retractions or nasal flaring. Abdomen/GI: soft, mild tenderness at umbilicus, with surrounding redness and warmth, blanching, that is about 3 cm diameter. No crepitus. No underlying mass palpated. No open wound. No drainage from umbilicus. Skin: Warm, dry MS/ Extremity: Pulses equal, no cyanosis. Neuro: Awake and alert, GCS 15 Vital Signs: 20:24 BP 114 / 94; Pulse 94; Resp 18 S; Temp 97.9(O); Pulse Ox 98% on R/A; Weight 113.4 kg lg3 (R); Height 5 ft. 6 in. (R); 22:19 BP 117 / 73; Pulse 80; Resp 19; Pulse Ox 98% on R/A; kd3 20:24 Body Mass Index 40.35 (113.40 kg, 167.64 cm) lg3 MDM: 19:56 Patient medically screened. rn 22:50 Differential diagnosis: bowel obstruction, non-specific abd pain, cellulitis, abscess. rn Data reviewed: vital signs, nurses notes, lab test result(s), radiologic studies, CT scan, and as a result, I will discharge patient. Counseling: I had a detailed discussion with the patient and/or guardian regarding: the historical points, exam findings, and any diagnostic results supporting the discharge/admit diagnosis, lab results, radiology results, the need for outpatient follow up, to return to the emergency department if symptoms worsen or persist or if there are any questions or concerns that arise at home. Special discussion: Based on the patient's Hx, exam, and Dx evaluation, there is no indication for emergent surgery or inpatient Tx. It is understood by the patient/guardian that if the Sx's persist or worsen they need to return immediately for re-evaluation. I discussed with the patient/guardian in detail that at this point there is no indication for admission to the hospital. It is understood, however, that if the symptoms persist or worsen the patient needs to return immediately for re-evaluation. Based on the history and exam findings, there is no indication for further emergent testing or inpatient evaluation. I discussed with the patient/guardian the need to see the primary care provider for further evaluation of the symptoms. ED course: No intra abdominal abnormalities on imaging, will treat as superficial cellulitis as seen clinically and on imaging. Will dc home with abx and return precautions.. 08/17 20:27 Order name: CBC with Diff; Complete Time: 22:45 rn 08/17 20:27 Order name: CMP; Complete Time: 22:45 rn 08/17 20:27 Order name: Lipase; Complete Time: 22:45 rn 08/17 20:27 Order name: Test, Urine; Complete Time: 22:45 rn 08/17 20:27 Order name: Urinalysis w/ reflexes; Complete Time: 22:45 rn 08/17 22:03 Order name: Urine Culture EDAL 08/17 20:27 Order name: CT Abd/Pelvis - IV Contrast Only; Complete Time: 22:45 rn 08/17 20:27 Order name: IV Saline Lock; Complete Time: 21:42 rn 08/17 20:27 Order name: Labs collected and sent; Complete Time: 21:42 rn Administered Medications: 23:03 Drug: Trimethoprim-Sulfamethoxazole PO (160 mg-800 mg (DS) 1 tablet Route: PO; kd3 23:03 Drug: Cephalexin PO 500 mg Route: PO; kd3 Disposition Summary: 08/17/22 22:52 Discharge Ordered Location: Home rn Problem: new rn Symptoms: have improved rn Condition: Stable rn Diagnosis - Cellulitis of abdominal wall rn Followup: rn - With: Private Physician - When: 2 - 3 days - Reason: Recheck today's complaints, Re-evaluation by your physician Discharge Instructions: - Discharge Summary Sheet rn - Cellulitis, Adult rn Forms: - Medication Reconciliation Form rn - Thank You Letter rn - Antibiotic international organizer - Prescription Opioid Use rn - Patient Portal Instructions rn Prescriptions: - Cephalexin 500 mg Oral Capsule - take 1 capsule by ORAL route every 12 hours for 10 days; 20 capsule; Refills: rn 0, Product Selection Permitted - Bactrim DS 800-160 mg Oral Tablet - take 1 tablet by ORAL route every 12 hours for 10 days; 20 tablet; Refills: 0, rn Product Selection Permitted Signatures: Dispatcher [employer] Thomas Patel MD MD rn Jacqui Wallace RN RN lg3 Cinthya Porras RN RN kd3
[2022-08-17] MEDS ORDERED: CEPHALEXIN 250 MG CAP ONE (23:10)
[2022-08-17] MEDS ORDERED: SMZ./TMP. 800/160 MG TABLET ONE (23:11)
[2022-08-18 01:45] VITALS: TEMP 97.9; O2SAT 98
[2022-08-18 01:47] VITALS: BP 117/73
== END 2022-08-17 23:14 | disposition home or self-care (01) ==
LOC: ER 19:33
DX: L03.311 Cellulitis of abdominal wall (principal)
CPT/HCPCS: 36415; 74177; 80053; 81001; 81025; 83690; 85025; 87086; 87088; 99284; Q9967